=== PATIENT | male | born 1975 | race Hispanic/Latino ===

== ENCOUNTER 2022-12-09 11:18 | Observation (INO) | payer OTHER ==
--- OUTSIDE RECORDS SUMMARY | 2022-12-09 11:24 | XMS REPORT | Continuity of Care Document ---
:1975 Author Organization [facility] t Address [address] [place] [id number] Care Team Providers Name Role Phone YOU VON Etienne Primary Care Physician Unavailable AVINASH CHILD Attending Clinician Unavailable Negin Fierro RN Attending Clinician MARIAN MADERA Attending Clinician Unavailable Patricia Peters DO Attending Clinician Marian Madera MD Attending Clinician Jorge Castillo MD Attending Clinician Doctor Unassigned, [place] Attending Clinician Unavailable Kade Guerrero Attending Clinician AVINASH CHILD Admitting Clinician Unavailable MARIAN MADERA Admitting Clinician Unavailable Marian Madera MD Admitting Clinician Kade Guerrero Admitting Clinician Payers Payer Name Policy Type Policy Number Effective Date Expiration Date S ource Problems Condition Condition Condition Status Onset Resolution Last Treating Co mments Source Name Details Category Date Date Treatment Clinician Date Cholangiti Cholangiti Disease Active 2020-07 Overview : Univers s s 07-22 Formattin ity of 00:00: g of this [place] 00 note Medical might be Branch different from the original. Added automatic ally from request for surgery [id number] Gallstone Gallstone Disease Active 2020-07 Uni vers pancreatit pancreatit 07-12 it y of is is 00:00: [place] 00 Medical Branch Choledocho Choledocho Disease Active 2020-07 Overview : Univers lithiasis lithiasis 07-12 Formattin i ty of 00:00: g of this 00 note Medical might be Branch different from the original. Added automatic ally from request for surgery [id number] Hypertensi Hypertens Problem Active 2019-01-31 Memoria ve angela 07-04 04:01:41 l disorder, disorder, 00:00: Herm larry systemic systemic 00 arterial arterial (disorder) (disorder) Active 07/04/2004 Problem 01/31/2019 [facility] Anorectal Anorectal Problem Active 2019-01-31 Memoria pain pain 04:01:41 l (finding) (finding) Herm larry Active Problem 01/31/2019 [facility] Hematochez Hematoche Problem Active 2019-01-31 Memoria ia mamta 04:01:41 l (finding) (finding) Herm larry Active Problem 01/31/2019 [facility] Hyperchole Hyperchol Problem Active 2019-01-31 Memoria sterolemia esterolemi 04:01:41 l (disorder) a Silver n (disorder) Active Problem 01/31/2019 [facility] History of Past Illness Condition Condition Condition Status Onset Resolution Last Treating Co mments Source Name Details Category Date Date Treatment Clinician Date Other Other Problem 2019-01-31 2019-01-31 Memoria specified specified 01-29 04:01:41 04:01:41 l diseases diseases 05:00: Silver n of anus of anus and rectum and rectum 01/29/2019 01/31/2019 [facility] Allergies, Adverse Reactions, Alerts Allergy Allergy Status Severity Reaction(s) Onset Inactive Treating Comm ents Source Name Type Date Date Clinician No Known No Known Active Memori a Medicati Medicati l on on Tarik Allergie Allergie s s NO KNOWN Drug Active Univers ALLERGIE Class ity of S [facility] Social History Social Habit Start Date Stop Date Quantity Comments Source Exposure to Not sure University of SARS-CoV-2 (event) [facility] Gender [facility] History of tobacco Current smoker [facility] Alcohol intake 2021-09-22 2021-09-22 Current drinker [facility] 00:00:00 00:00:00 of [facility] (finding) History of Social 2021-09-22 2021-09-[address] function 00:00:00 00:00:00 Hospital Tobacco use and 2021-08-20 2021-08-20 Smokeless tobacco [facility] exposure 00:00:00 00:00:00 non-user Hospital Tobacco Comment 2021-08-20 2021-08-20 teenager [facility] 00:[facility]00 Hospital Alcohol Comment 2021-08-20 2021-08-20 occasional [facility] 00:00:00 00:00:00 [facility] Sex Assigned At [birth year] [facility] 00[facility]00 Hospital Smoking Status Start Date Stop Date Source Unknown if ever smoked [facility] Ex-smoker 2021-08-20 00:00:00 2021-08-20 00:00:00 [facility] Medications Ordered Filled Start Stop Current Ordering Indication Dosage Frequency Signature Comments Components Source Medication Medication Date Date Medication? Clinician (SIG) Name Name lactated 2020-07 Yes 1000mL at 50 Univer s ringers IV 1-13 mL/hr, ity of infusion 12:30: 1,000 [place] 1[place]000 [place] 00 IV Medical Infusion, Branch CONTINUOUS , Starting on 05/16/21 at 0630, Until Discontinu ed, Routine metoprolol 2020-07 Yes 25mg 25 mg, Unive rs tartrate 1-13 Oral, BID, ity o f (LOPRESSOR) 02:00: First dose [place] tablet 25 00 on Tue Medical mg 05/15/21 Branch at 2000, Until Discontinu ed, Routine lactated 2020-07 1000mL at 125 Univ ers ringers IV 1-12 11-13 mL/hr, ity of infusion 21:45: 12:29 1,000 mL, [place] as 1,000 mL 00 :53 IV Medical Infusion, Branch CONTINUOUS , Starting on 05/15/21 at 1545, Until 05/16/21 at 0629, Routine HYDROcodone 2020-07 Yes 1{tbl} 1 tablet, Univers -acetaminop 1-12 Oral, ity of hen (NORCO 21:36: Q6HPRN, [place] 5) 5-325 mg 06 Starting Medi joycelyn tablet 1 on Tue Branch tablet 05/15/21 at 1536, Until Discontinu ed, Routine, Pain (scale 4-6) acetaminoph 2020-07 Yes 650mg 650 mg, Un bev en -12 Oral, ity of (TYLENOL) 21:35: Q6HPRN, [place] tablet 650 33 Starting Medic al mg on Tue Branch 05/15/21 at 1535, Until Discontinu ed, Routine, Pain (scale 1-3) pantoprazol 2020-07 Yes 40mg 40 mg, Univ ers e -12 Oral, ity of (PROTONIX) 21:30: DAILY, [place] EC tablet 00 First dose Medi joycelyn 40 mg on Tue Branch 05/15/21 at 1530, Until Discontinu ed, Routine lactated 2020-07- No 1000mL at 125 Univ ers ringers IV 07-15 1112 mL/hr, ity of infusion 15:00: 21:34 1,000 mL, [place] 1,000 mL 00 :51 IV Medical Infusion, Branch CONTINUOUS , Starting on Tue05/15/21 at 0900, Until Tue05/15/21 at 1534, Routine simethicone 2020-07 Yes 80mg 80 mg, Univ ers (GAS RELIEF 07-15 Oral, ity of (SIMETHICON 14:45: PC+HS, [place] E)) 00 First dose Medical chewable (after Branch tablet 80 last mg reorder) on Tue05/15/21 at 0845, Until Discontinu ed, Routine KCL 2020-07- No 40meq 40 mEq, IV Unive rs (POTASSIUM 07-15 Piggyback, it y of CHLORIDE) 10:34: 11:46 ONCE, 1 [place] 40 mEq in 00 :00 dose, On Medica l NaCl 0.9% Tue Branch (NS) 05/15/21 piggyback at 0445, 250 mL simethicone 2020-07- No 80mg 80 mg, Uni vers (GAS RELIEF -05-15 Oral, ity of (SIMETHICON 22:00: 05:25 [place]CE, 1 [place] 00 :00 dose, On Medical chewable [place] Branch tablet 80 05/14/21 mg at 1600, Routine acetaminoph 2020-07- No 1000mg 1,000 mg, Univers en ADULT 07-14 IV ity of ([facility]) 20:00: 14:39 Infusion, [place] injection 00 :00 Administer Medi joycelyn 1,000 mg over 15 Branch Minutes, Q8H, 3 doses, First dose (after last reorder) on Ellen 05/14/21 at 1400, Last dose on Tue05/15/21 at 0600, Routine
Indicatio n: Non-periop erative Patient
Approved by: Per Policy (NPO Status) acetaminoph 2020-07- No 1000mg 1,000 mg, Univers en ADULT 07-14 IV ity of ([facility]) 20:00: 19:59 [place]fusion, [place] injection 00 :00 Administer Medi joycelyn 1,000 mg over 15 Branch Minutes, Q8H, 3 doses, First dose (after last reorder) on [place] 05/14/21 at 1400, Last dose on Tue05/15/21 at 0600, Routine
Indicatio n: Non-periop erative Patient
Approved by: Per Policy (NPO Status) lactated 2020-07 Yes 1000mL at 175 Unive rs ringers IV 1-11 mL/hr, ity of infusion 16:45: 1,000 mL, [place] 1,000 mL 00 IV Medical Infusion, Branch CONTINUOUS , Starting on Ellen 05/14/21 at 1045, Until Discontinu ed, Routine lactated 2020-07- No 1000mL at 175 Univ ers ringers IV 07-14 1112 mL/hr, ity of infusion 16:45: 14:45 1,000 mL, [place] 1,000 mL 00 :15 IV Medical Infusion, Branch CONTINUOUS , Starting on Ellen 05/14/21 at 1045, Until Tue05/15/21 at 0845, Routine acetaminoph 2020-07- No 1000mg 1,000 mg, Univers en ADULT 07-14 IV ity of ([facility]) 13:30: 13:06 [place]fusion, [place] injection 00 :00 Administer Medi joycelyn 1,000 mg over 15 Branch Minutes, ONCE, 1 dose, On Ellen 05/14/21 at 0730, Routine
Indicatio n: Non-periop erative Patient
Approved by: Per Policy (NPO Status) acetaminoph 2020-07- No 1000mg 1,000 mg, Univers en ADULT 07-14 IV ity of (OFIRMEV) 04:15: 04:42 [place]fusion, [place] injection 00 :00 Administer Medi joycelyn 1,000 mg over 15 Branch Minutes, ONCE, 1 dose, On Tue05/13/21 at 2215, Routine
Indicatio n: Non-periop erative Patient
Approved by: Per Policy (NPO Status) enoxaparin 2020-07 Yes 40mg 40 mg, Unive rs (LOVENOX) 07-13 Subcutaneo ity of injection 23:00: [place], DAILY, [place] 40 mg 00 First dose Medical on Tue Branch 05/13/21 at 1700, Until Discontinu ed, Routine enoxaparin 2020-07 Yes 40mg 40 mg, Unive rs (LOVENOX) 07-13 Subcutaneo ity of injection 23:00: us, DAILY, [place] 40 mg 00 First dose Medical on Tue Branch 05/13/21 at 1700, Until Discontinu ed, Routine Indomethaci 2020-07- No PRN, Unive rs n (INDOCIN) 07-13 Starting ity of suppository 22:03: 23:22 on Tue [place] as 00 :00 05/13/21 Medical at 1603, Branch Until Tue05/13/21 at 1722, Routine, Intra-op metoprolol 2020-07 Yes 5mg 5 mg, Univer s (LOPRESSOR) 07-13 Intravenou it y of injection 5 18:00: s, Q6H, [place] mg 00 First dose Medical on Tue Branch 05/13/21 at 1200, Until Discontinu ed, Routine metoprolol 2020-07- No 5mg 5 mg, Unive rs (LOPRESSOR) 07-13 Intravenou i ty of injection 5 18:00: 21:34 s, Q6H, [place] mg 00 :50 First dose Medical on Tue Branch 05/13/21 at 1200, Until Discontinu ed, Routine pantoprazol 2020-07- No 40mg 40 mg, Uni vers e 07-13-13 Slow IV ity of (PROTONIX) 16:30: 16:29 Push, [place] injection 00 :00 Q24H, 3 Medical 40 mg doses, Branch First dose on Tue05/13/21 at 1030, Last dose on Tue05/15/21 at 1030 pantoprazol 2020-07 No 40mg 40 mg, Uni vers e 07-13 Slow IV ity of (PROTONIX) 16:30: 16:28 Push, [place] injection 00 :00 Q24H, 3 Medical 40 mg doses, Branch First dose on Tue05/13/21 at 1030, Last dose on Tue05/15/21 at 1030 lactated 2020-07 No 1000mL at 999 Univ ers ringers IV 1-10 11-10 mL/hr, ity of infusion 15:15: 14:27 1,000 mL, [place] 1,000 mL 00 :00 IV Medical Infusion, Branch ONCE, 1 dose, On Tue05/13/21 at 0915, Routine potassium 2020-07 No 20meq 20 mEq, IV Univers chloride 20 07-13 11-10 Piggyback, i ty of mEq/100 mL 14:30: 19:20 ONCE, 1 [place] as (KCL) 20 00 :00 dose, On Medical mEq/100 mL Tue Branch RTU IVPB 20 05/13/21 mEq at 0830, 100 mL acetaminoph 2020-07 No 1000mg 1,000 mg, Univers en ADULT 07-13-10 IV ity of (OFIRMEV) 13:15: 15:55 Infusion, [place] injection 00 :00 Administer Medi joycelyn 1,000 mg over 15 Branch Minutes, ONCE, 1 dose, On Tue05/13/21 at 0715, Routine
Indicatio n: Non-periop erative Patient
Approved by: Per Policy (NPO Status) piperacilli 2020-07 Yes 3.375g 3.375 g, Univers n-tazobacta -10 IV ity of m (ZOSYN) 01:15: [place]back, [place] 3.375 g in 00 Q6H ABX, Medic al NaCl 0.9% First dose Bran ch (NS) 100 mL on Tue MINI-BAG 05/12/21 at 1915, Until Discontinu ed, Administer over 30 Minutes, 100 mL
Reas on for Anti-Infec tive: Empiric Therapy for Suspected Infection< br>Empiric Therapy Site: Abdominal< br>Duratio n of therapy: 72 hours piperacilli 2020-07- No 3.375g 3.375 g, Univers n-tazobacta 07-1313 IV ity of m (ZOSYN) 01:15: 19:38 Piggyback, [place] 3.375 g in 00 :19 Q6H ABX, Medic al NaCl 0.9% First dose Bran ch (NS) 100 mL on [facility] MINI-BAG 05/12/21 at 1915, Until Discontinu ed, Administer over 30 Minutes, 100 mL
Reas on for Anti-Infec tive: Empiric Therapy for Suspected Infection< br>Empiric Therapy Site: Abdominal< br>Duratio n of therapy: 72 hours enoxaparin 2020-07- No 40mg 40 mg, Univ ers (LOVENOX) 07-1210 Subcutaneo ity of injection 23:00: 16:25 us, DAILY, [place] 40 mg 00 :14 First dose Medical on [facility] 05/12/21 at 1700, Until Discontinu ed, Routine FENTanyl 2020-07 Yes 1000ug IV Univers [employer]ORTS PHOTOGRAPHER 1,000 09 Infusion, ity o f mcg in NaCl 21:15: CONTINUOUS [place] 0.9%(NS) 00 , Starting Medic al 100 mL RTU on [facility] 05/12/21 at 1515, Until Discontinu ed, Routine FENTanyl 2020-07- No 1000ug IV Univer s SPORTS PHOTOGRAPHER 1,000 07-12 1112 Infusion, ity of mcg in NaCl 21:15: 14:44 CONTINUOUS [place] 0.9%(NS) 00 :42 , Starting Medic al 100 mL RTU on [facility] 05/12/21 at 1515, Until Tue05/15/21 at 0844, Routine lactated 2020-07- No 1000mL at 250 Univ ers ringers IV 07-12 11-11 mL/hr, ity of infusion 21:15: 16:40 1,000 mL, [place] 1,000 mL 00 :19 IV Medical Infusion, Branch CONTINUOUS , Starting on Tue05/12/21 at 1515, Until Ellen 05/14/21 at 1040, Routine naloxone 2020-07 Yes .1mg 0.1 mg, Univer s (NARCAN) 07-12 Slow IV ity of injection 20:09: Push, [place] 0.1 mg 27 SEE-INSTRU Medical CTIONS, Branch Starting on Tue05/12/21 at 1409, Until Discontinu ed, Routine naloxone 2020-07 Yes .1mg 0.1 mg, Univer s (NARCAN) 07-12 Slow IV ity of injection 20:09: Push, [place] 0.1 mg 27 SEE-INSTRU Medical CTIONS, Branch Starting on Tue05/12/21 at 1409, Until Discontinu ed, Routine ondansetron 2020-07 Yes 4mg 4 mg, Slow Univers (ZOFRAN 07-12 IV Push, ity of (PF)) 20:09: Q6HPRN, [place] injection 4 11 Starting Medi joycelyn mg on Tue Branch 05/12/21 at 1409, Until Discontinu ed, Routine, Nausea and Vomiting (N/V) ondansetron 2020-07 Yes 4mg 4 mg, Slow Univers (ZOFRAN 07-12 IV Push, ity of (PF)) 20:09: Q6HPRN, [place] injection 4 11 Starting Medi joycelyn mg on [facility] Branch 05/12/21 at 1409, Until Discontinu ed, Routine, Nausea and Vomiting (N/V) acetaminoph 2020-07- No 1000mg 1,000 mg, Univers en ADULT 07-12 IV ity of (OFIRMEV) 20:00: 01:19 Infusion, [place] injection 00 :00 Administer Medi joycelyn 1,000 mg over 15 Branch Minutes, ONCE, 1 dose, On Tue05/12/21 at 1400, Routine
Indicatio n: Non-periop erative Patient
Approved by: Per Policy (NPO Status) FENTanyl PF 2020-07- No 100ug 100 mcg, Univers (SUBLIMAZE 07-12 Slow IV ity o f (PF)) 16:45: 16:20 Push, [place] injection 00 :00 ONCE, 1 Medical 100 mcg dose, On Branch Tue05/12/21 at 1045, Routine D5W 0.45% 2020-07 No 1000mL at 150 Uni vers NaCl 07-12 11-10 mL/hr, ity of (1/2NS) IV 16:00: 14:07 1,000 mL, [place] infusion 00 :00 IV Medical 1,000 mL Infusion, Branch CONTINUOUS , Starting on Tue05/12/21 at 1000, Until Tue05/13/21 at 0807, ANNIE FENTanyl PF 2020-07- No 50ug 50 mcg, Un bev (SUBLIMAZE 07-12 Slow IV ity o f (PF)) 16:00: 15:07 Push, [place] injection 00 :00 ONCE, 1 Medical 50 mcg dose, On Branch Tue05/12/21 at 1000, Routine ondansetron 2020-07- No 4mg 4 mg, Slow Univers (ZOFRAN 07-12 IV Push, ity of (PF)) 14:45: 14:11 ONCE, 1 [place] injection 4 00 :00 dose, On Medi joycelyn mg [facility] 05/12/21 at 0845, ANNIE morpHINE 2020-07- No 4mg 4 mg, Slow Un bev injection 4 07-12 IV Push, ity of mg 14:45: 14:11 ONCE, 1 [place] 00 :00 dose, On Medical [facility] Branch 05/12/21 at 0845, STAT NaCl 0.9% 2020-07 No 1000mL at 999 Uni vers (NS) bolus 07-12 mL/hr, ity of infusion 14:45: 16:30 1,000 mL, [place] 1,000 mL 00 :00 IV Medical Infusion, Branch ONCE, 1 dose, On Tue05/12/21 at 0845, ANNIE iopamidol 2020-07- No [id number] 120mL 120 mL, Univers (ISOVUE 07-12 Intravenou ity o f 370-500 mL) 14:00: 14:00 s, ONCE, 1 [place] injection 00 :00 dose, On Medica l 120 mL [facility] 05/12/21 at 0815, Routine No known 2020-07 No Univers medications 07-12 ity of 12:49: [address] No known 2020-07 No Univers medications - ity of 12:49: [address] No known 2020-07 No Univers medications - ity of 12:49: [address] No known 2020-07 No Univers medications 07-12 ity of 12:49: [address] No 200 mL, Memoria Medication 01-29 Soln-IV, l 20:43: IV, Once, first dose 01/29/19 15:43:00 CDT, stop date 01/29/19 15:43:00 CDT Misc No 200 mL, Memoria Medication 01-29 Soln-IV, l 20:43: IV, Once, first dose 01/29/19 15:43:00 CDT, stop date 01/29/19 15:43:00 CDT Saline Lock No 10 mL, Mike camilo Flush 01-29 Soln, IV l 17:52: Push, As Indicated PRN for flush, first dose 01/29/19 12:52:00 CDT LR 1,000 mL No 1,000 mL, M emoria - IV, 75 l 17:52: mL/hr, start date 01/29/19 12:52:00 CDT Saline Lock No 10 mL, Mike camilo Flush 01-29 Soln, IV l 17:52: Push, As Indicated PRN for flush, first dose 01/29/19 12:52:00 CDT LR 1,000 mL No 1,000 mL, M emoria - IV, 75 l 17:52: mL/hr, start date 01/29/19 12:52:00 CDT hydrocortis Yes 25 mg = 1 M emoria one acetate - supp, IA, l 25 MG 17:46: BID, X 10 Tarik Rectal 00 days, # 20 Suppository supp, 0 Refill(s) hydrocortis Yes 25 mg = 1 M emoria one acetate - supp, IA, l 25 MG 17:46: BID, X 10 [place] Rectal 00 days, # 20 Suppository supp, 0 Refill(s) propofol 2019-0 No 50 mg = 5 Mike camilo 7-29 mL, l 17:38: Emulsion, Tarik 00 IV, Once, first dose 01/29/19 12:38:00 CDT, stop date 01/29/19 12:38:00 CDT propofol 2019-0 No 50 mg = 5 Mike camilo 7-29 mL, l 17:38: Emulsion, [place] 00 IV, Once, first dose 01/29/19 12:38:00 CDT, stop date 01/29/19 12:38:00 CDT propofol 2019-0 No 100 mg = Memor ia 7-29 10 mL, l 17:34: Emulsion, Tarik 00 IV, Once, first dose 01/29/19 12:34:00 CDT, stop date 01/29/19 12:34:00 CDT propofol 2019-0 No 100 mg = Memor ia 7-29 10 mL, l 17:34: Emulsion, [place] 00 IV, Once, first dose 01/29/19 12:34:00 CDT, stop date 01/29/19 12:34:00 CDT midazolam 2019-0 No 2 mg = 2 Mike camilo 7-29 mL, l 17:25: Injection, Tarik 00 IV, Once, first dose 01/29/19 12:25:00 CDT, stop date 01/29/19 12:25:00 CDT fentaNYL 2019-0 No 100 mcg = Mike camilo 7-29 2 mL, l 17:25: Injection, [place] 00 IV, Once, first dose 01/29/19 12:25:00 CDT, stop date 01/29/19 12:25:00 CDT lidocaine 2019-0 No 100 mg = 5 Me moria 7-29 mL, l 17:25: Injection, Tarik 00 IV, Once, first dose 01/29/19 12:25:00 CDT, stop date 01/29/19 12:25:00 CDT midazolam 2019-0 No 2 mg = 2 Mike camilo 7-29 mL, l 17:25: Injection, Tarik 00 IV, Once, first dose 01/29/19 12:25:00 CDT, stop date 01/29/19 12:25:00 CDT fentaNYL 2019-0 No 100 mcg = Mike camilo - 2 mL, l 17:25: Injection, Tarik IV, Once, first dose 01/29/19 12:25:00 CDT, stop date 01/29/19 12:25:00 CDT lidocaine 2019-0 No 100 mg = 5 Me moria 7-29 mL, l 17:25: Injection, Harrison IV, Once, first dose 01/29/19 12:25:00 CDT, stop date 01/29/19 12:25:00 CDT LR 1,000 mL 2019-0 No 1,000 mL, M emoria 7- IV, 30 l 16:54: mL/hr, start date 01/29/19 11:54:00 CDT Lidocaine 2019-0 No 0.2 mL, Memor ia 2% 0.2 mL 01-29 Injection, l IV Start 16:54: Subcutaneo [facility] [[facility] 00 us, Once PRN for other (see comment), first dose 01/29/19 11:54:00 CDT LR 1,000 mL 2019-0 No 1,000 mL, M emoria - IV, 30 l 16:54: mL/hr, start date 01/29/19 11:54:00 CDT Lidocaine 2019-0 No 0.2 mL, Memor ia 2% 0.2 mL 01-29 Injection, l IV Start 16:54: Subcutaneo [facility] deal [[place]] 00 us, Once PRN for other (see comment), first dose 01/29/19 11:54:00 CDT atorvastati 2019-0 Yes 10 mg = 1 M emoria n 10 mg 7-25 tabs, l oral tablet 14:27: Oral, Sandra nn Daily, cholestero l atorvastati 2019-0 Yes 10 mg = 1 M emoria n 10 mg 7-25 tabs, l oral tablet 14:27: Oral, Sandra nn Daily, cholestero l lisinopril 2019-0 Yes 10 mg = 1 Me moria 10 mg oral 7-25 tabs, l tablet 14:26: Oral, [place] 00 Daily, HTN lisinopril 2019-0 Yes 10 mg = 1 Me moria 10 mg oral 7-25 tabs, l tablet 14:26: Oral, [place] 00 Daily, HTN Immunizations Ordered Filled Immunization Date Status Comments [facility] Immunization Name Name SARS-COV-2 COVID-19 2020-09-17 Completed Unive rsity of MICKIE/J&J VACCINE 00:00:00 [facility] Vital Signs Vital Name Observation Time Observation Value Comments Source Systolic blood 2021-05-16 22:00:00 145 mm[Hg] Univer sity of pressure [place] [facility] Diastolic blood 2021-05-16 22:00:00 95 mm[Hg] Unive rsity of pressure [place] [facility] Heart rate 2021-05-16 22:00:00 107 /min [facility]i [facility] [place] [facility] Body temperature 2021-05-16 22:00:00 37.72 Tory Univ ersity of [place] [facility] Respiratory rate 2021-05-16 22:00:00 20 /min Univ ersity of [place] [facility] Oxygen saturation in 2021-05-16 22:00:00 95 /min University of Arterial blood by [place] [employer]ulse oximetry Branch Body height 2021-05-12 18:40:00 182.9 cm [facility] [place] [facility] Body weight 2021-05-12 18:40:00 118.48 kg standing [facility] [place] [facility] BMI 2021-05-12 18:40:00 35.43 kg/m2 [facility] [place] [facility] Systolic blood 2021-05-13 21:15:00 179 mm[Hg] Univer sity of pressure [facility] Diastolic blood 2021-05-13 21:15:00 105 mm[Hg] Unive rsity of pressure [place] [facility] Heart rate 2021-05-13 21:15:00 103 /min [facility]i [facility] [place] [facility] Respiratory rate 2021-05-13 21:15:00 34 /min Univ ersity of [place] [facility] Oxygen saturation in 2021-05-13 21:15:00 93 /min University of Arterial blood by [email or web address] joycelyn Pulse oximetry Branch Body temperature 2021-05-13 20:30:00 36.78 Tory Univ ersity [facility] [place] [facility] Body height 2021-05-12 18:40:00 182.9 cm [facility]i [facility] [place] [facility] Body weight 2021-05-12 18:40:00 118.48 kg standing [facility] [place] [facility] BMI 2021-05-12 18:40:00 35.43 kg/m2 Universi [facility] Respitory Rate 2019-01-29 18:27:00 Memori al Harrison Systolic (mm Hg) 2019-01-29 18:27:00 Mike rial [place] Diastolic (mm Hg) 2019-01-29 18:27:00 Mem orial [place] Heart Rate 2019-01-29 18:00:00 [facility] [place] Respitory Rate 2019-01-29 18:00:00 Memori al Tarik Systolic (mm Hg) 2019-01-29 18:00:00 Mike rial [place] Diastolic (mm Hg) 2019-01-29 18:00:00 Mem orial Tarik Heart Rate 2019-01-29 17:50:00 [facility] [place] Respitory Rate 2019-01-29 17:50:00 Memori al [place] Systolic (mm Hg) 2019-01-29 17:50:00 Mike rial [place] Diastolic (mm Hg) 2019-01-29 17:50:00 Mem orial [place] Heart Rate 2019-01-29 17:40:00 [facility] [place] Temperature Oral (F) 2019-01-29 17:40:00 36.8 Tory [facility] Height 2019-01-29 16:52:00 182 cm [facility] Tarik Temperature Oral (F) 2019-01-29 16:52:00 37.2 Tory [facility] Height 2019-01-25 14:16:00 182 cm [facility] [place]ik Procedures Procedure Date / Time Performing Source Performed Clinician LIPASE 2021-05-16 [facility] of 14:11:00 [facility] COMP. METABOLIC PANEL ([id number]) 2021-05-16 Emma Seo Un iversity of 14:11:00 [facility] CBC WITH DIFF 2021-05-16 Emma Seo [place] of 14:11:00 [facility] PHOSPHORUS 2021-05-15 Emma Seo [place] of 09:34:00 [facility] LIPASE 2021-05-15 Carine, [facility] of 09:34:00 [facility] MAGNESIUM 2021-05-15 Emma Seo [place] of 09:34:00 [facility] COMP. METABOLIC PANEL ([id number]) 2021-05-15 Janusz Hawk Un iversity of 09:34:00 [facility] CBC WITH DIFF 2021-05-15 Janusz Hawk University of 09:34:00 Larry [facility] PHOSPHORUS 2021-05-14 Emma Seo [place] of 11:26:00 [facility] AMYLASE 2021-05-14 [facility] of 11:26:00 MolinaIshano [facility] LIPASE 2021-05-14 Emma Seo [place] of 11:26:00 [facility] MAGNESIUM 2021-05-14 Gabbi [facility] of 11:26:00 [facility] HEPATIC FUNCTION PANEL ([id number]) 2021-05-14 Emma Seo U niversity of (ALB,T.PRO,BILI 11:26:00 [place] [facility] T,BU/BC,ALT,AST,ALK PHOS) Branch BASIC METABOLIC PANEL (NA, K, 2021-05-14 Emma Seo Un iversity of CL, CO2, GLUCOSE, BUN, 11:26:00 [place] Med ical CREATININE, CA) Branch CBC WITH DIFF 2021-05-14 Emma Seo [place] of 11:26:00 [facility] PHOSPHORUS 2021-05-14 Emma Seo [place] of 11:26:00 [facility] AMYLASE 2021-05-14 [facility] of 11:26:00 Jesse Garcia [facility] LIPASE 2021-05-14 Emma Seo [place] of 11:26:00 [facility] MAGNESIUM 2021-05-[address] [facility] 11:26:00 [facility] HEPATIC FUNCTION PANEL ([id number]) 2021-05-14 Emma Seo U niversity of (ALB,T.PRO,BILI 11:26:00 [place] [facility] T,BU/BC,ALT,AST,ALK PHOS) Branch BASIC METABOLIC PANEL (NA, K, 2021-05-14 Emma Seo Un iversity of CL, CO2, GLUCOSE, BUN, 11:26:00 [place] [facility] CREATININE, [place]) Branch CBC WITH DIFF 2021-05-14 Emma Seo of 11:26:00 [facility] CYTO BILE DUCT BRUSHING 2021-05-13 Jorge Castillo [facility] of 22:55:00 [facility] ERCP (ENDO) 2021-05-13 Santy [facility] of 21:26:44 [facility] ERCP (ENDO) 2021-05-13 Marian Madera [facility] of 21:26:44 [facility] ENDOSCOPIC RETROGRADE 2021-05-13 Jorge Castillo [place] of CHOLANGIOPANCRETOGRAPHY 21:25:00 [facility] dicnc Branch ENDOSCOPIC RETROGRADE 2021-05-13 Anna, [facility] of CHOLANGIOPANCRETOGRAPHY 21:25:00 [facility] 2021-05-13 Gabbi [facility] of 11:58:00 [facility] MAGNESIUM 2021-05-13 Gabbi [facility] of 11:58:00 [facility] COMP. METABOLIC PANEL ([id number]) 2021-05-13 Emma Seo Un i[facility]ity of 11:58:00 [facility] CBC WITH DIFF 2021-05-13 Gabbi [facility] of 11:58:00 [facility] PROTHROMBIN TIME / INR 2021-05-13 Emma Seo [facility] y of 11:58:00 [facility] ACTIVATED PARTIAL THRMPLAS MAMI 2021-05-13 Emma Seo U niversity of 11:58:00 [facility] FIBRINOGEN 2021-05-13 Gabbi [facility] of 11:58:00 [facility] PHOSPHORUS 2021-05-13 Gabbi [facility] of 11:58:00 [facility] MAGNESIUM 2021-05-13 Gabbi [facility] of 11:58:00 [facility] COMP. METABOLIC PANEL (99116) 2021-05-13 Emma Seo Un iversity of 11:58:00 [facility] CBC WITH DIFF 2021-05-13 Emma Seo [place] of 11:58:00 [facility] PROTHROMBIN TIME / INR 2021-05-13 Emma Seo [facility] y of 11:58:00 [facility] ACTIVATED PARTIAL THRMPLAS MAMI 2021-05-13 Emma Seo U niversity of 11:58:00 [facility] FIBRINOGEN 2021-05-13 SeoEmma ruiz [place] of 11:58:00 [facility] ENDOSCOPY PROCEDURE 2021-05-13 Doctor Unassigned, Universit y of DOCUMENTATION 06:01:00 [place] [facility] ENDOSCOPY PROCEDURE 2021-05-13 Doctor Unassigned, Universit y of DOCUMENTATION 06:01:00 [place] [facility] US GALL BLADDER 2021-05-12 Patricia Peters [facility] 16:07:51 [facility] US GALL BLADDER 2021-05-12 Patricia Peters [facility] 16:07:51 [facility] COVID-19 (ID NOW RAPID TESTING) 2021-05-12 Patricia Peters [facility] 15:07:00 [facility] LAB ONLY COVID INTERPRETATION 2021-05-12 Patricia Peters [facility] 15:07:00 [facility] COVID-19 (ID NOW RAPID TESTING) 2021-05-12 Patricia Peters [facility] 15:07:00 [facility] LAB ONLY COVID INTERPRETATION 2021-05-12 Patricia Peters [facility] 15:07:00 [facility] CT ABDOMEN PELVIS W CONTRAST 2021-05-12 Patricia Peters [facility] 14:11:54 [facility] CT ABDOMEN PELVIS W CONTRAST 2021-05-12 Patricia Peters [facility] 14:11:54 [facility] LIPASE 2021-05-12 Patricia Peters [place] of 13:40:00 [facility] COMP. METABOLIC PANEL ([id number]) 2021-05-12 Patricia Peters [facility] 13:40:00 [facility] URINALYSIS 2021-05-12 Patricia Peters [facility] 13:40:00 [facility] LIPASE 2021-05-12 Patricia Peters [place] of 13:40:00 [facility] COMP. METABOLIC PANEL ([id number]) 2021-05-12 Patricia Peters [place] of 13:40:00 [facility] URINALYSIS 2021-05-12 Patricia Peters [place] of 13:40:00 [facility] CBC WITH DIFF 2021-05-12 Patricia Peters [place] of 13:22:00 [facility] CBC WITH DIFF 2021-05-12 Patricia Peters [place] of 13:22:00 [facility] NOTICE OF PRIVACY PRACTICES 2021-05-12 Doctor Unassigned, U niversity of 12:57:06 [place] [facility] NOTICE OF PRIVACY PRACTICES 2021-05-12 Doctor Unassigned, U niversity of 12:57:06 [place] [facility] CONSENT/REFUSAL FOR DIAGNOSIS 2021-05-12 Doctor Unassigned, University of AND TREATMENT 12:56:55 [place] [facility] CONSENT/REFUSAL FOR DIAGNOSIS 2021-05-12 Doctor Unassigned, [facility] AND TREATMENT 12:56:55 [place] [facility] AGREEMENTS AUTHORIZATIONS AND 2021-05-12 Doctor Unassigned, [facility] IRREVOCABLE ASSIGNMENTS (FORM 06:01:00 [place] [facility] 2000) Branch HOSPITAL ADMISSION 2021-05-12 Doctor Unassigned, University 06:01:00 [place] [facility] AGREEMENTS AUTHORIZATIONS AND 2021-05-12 Doctor Unassigned, [facility] IRREVOCABLE ASSIGNMENTS (FORM 06:01:00 [place] [facility] 2000) [place] EXTERNAL PROVIDER RECORDS 2020-09-17 Doctor Unassigned, Uni versity of 05:01:00 [place] [facility] COLONOSCOPY FLEXIBLE; WITH 2019-01-29 Александр Montanez BIOPSY; SINGLE OR MULTIPLE [id number] 17:33:00 (N/A)<sup>1</sup> wisdom teeth extraction 1991-07-04 Gris Montanez 00:00:00 Plan of Care Planned Activity Planned Date Details Comments Source Future Scheduled 2022-10-05 Hepatitis [facility] 04:13:56 screening (procedure) [code = 769798412] Future Scheduled 2022-10-05 Screening for [facility] Test 04:13:56 malignant neoplasm of colon (procedure) [code = 754300865] Future Scheduled 2022-10-05 COVID-19 VACCINE (2 [facility] Test 04:13:56 - Booster for Mickie series) [code = COVID-19 VACCINE (2 - Booster for Mickie series)] Future Scheduled 2022-10-05 [facility] 04:13:56 [code = INFLUENZA VACCINE] Encounters Start End Encounter Admission Attending Care Care Encounter Source Date/Time Date/Time Type Type Clinicians Facility Department ID 2021-08-21 2021-08-21 Outpatient DANYELL [facility] [id number] [place] 00:00:00 00:00:00 AVINASH [address] 2021-08-21 2021-08-21 Inpatient DANYELL [facility] [id number] [place] 00:00:00 00:00:00 AVINASH [address] 2021-05-18 2021-05-18 Transition ANDREW Fierro 1.2.840.114 [id number] Univers 00:00:00 00:00:00 of Care Negin Lowell MAE 350.1.13.10 i ty [place] [id number] [facility] 403 Branch 2021-05-12 2021-05-16 Inpatient U SANTY [facility] NIKKI [id number] Univers 07:07:00 21:23:00 MARIAN thompson of [facility] 2021-05-12 2021-05-16 Hospital Patricia Peters 1.2.84 0.114 [id number] Univers 07:07:00 21:23:00 Encounter Marian Madera 350.1.13. 10 ity of [facility] 4.2.7.2.686 [place] [id number] [facility] 097 Branch 2021-05-13 2021-05-13 Surgery Anna [facility] 1.2.231.035 [id number] Univers 15:20:00 16:35:00 Jorge HAYWOOD 350.1.13.10 it y of SCIENCES 4.2.7.2.686 [place] BLDG [id number] [facility] 020 Branch 2020-09-17 2020-09-17 Orders Doctor CHLOE 1.2.840.114 [id number] Univers 00:00:00 00:00:00 Only Unassigned, VANE 350.1.13.10 ity of [place] [facility] 4.2.7.2.686 [place] [id number] [facility] 009 Branch 2020-05-12 2020-05-12 Outpatient COH COH PDPFFBI ILC COH 00:00:00 00:00:00 [id number] 2019-01-29 2019-01-29 Outpatient [facility] [id number] Memoria 16:07:54 18:35:00 r [facility] 2019-01-29 2019-01-29 Outpatient nullFlavo [facility] 7920 8 Memoria 16:07:54 18:35:00 reinaldo [facility] 2019-01-29 2019-01-29 Outpatient nullFlavo [facility] [id number] Memoria 11:07:54 13:35:00 reinaldo Montanez 2019-01-29 2019-01-29 Outpatient [place] [id number] 11:07:54 13:35:00 , Kade 8 Results Test Description Test Time Test Comments Results Result Comments Source LIPASE 2021-05-16 15:03:12 Test Item Value Reference Range Interpretation Comme nts LIPASE (test code = 5721161833) 182 U/L 0-220 Lab Interpretation (test code = 22140-1) Normal [facility]. METABOLIC PANEL (89901)2021-05-16 15:03:11 Test Item Value Reference Range Interpretation Comments NA (test code = 139 mmol/L 135-145 1641795341) K (test code = 3.1 mmol/L 3.5-5.0 L 8787726722) CL (test code = 106 mmol/L 98-108 5628845367) CO2 TOTAL (test code = 27 mmol/L 23-31 4090879210) AGAP (test code = 2-16 2794577429) BUN (test code = 8 mg/dL 7-23 3399557321) GLUCOSE (test code = 100 mg/dL 70-110 7045728609) CREATININE (test code = 0.66 mg/dL 0.60-1.25 0333751552) TOTAL BILI (test code = 1.8 mg/dL 0.1-1.1 H 5903086186) CALCIUM (test code = 7.6 mg/dL 8.6-10.6 L 7861022760) T PROTEIN (test code = 5.4 g/dL 6.3-8.2 L 2131509242) ALBUMIN (test code = 2.6 g/dL 3.5-5.0 L 3108323033) ALK PHOS (test code = 153 U/L 34-122 H 9381447872) ALTv (test code = 82 U/L 5-50 H 1742-6) AST(SGOT) (test code = 32 U/L 13-40 2593407601) eGFR (test code = mL/min/1.73m2 5620235911) JOSIE (test code = JOSIE) Association of Glomerular Filtration Rate (GFR) and Staging of Kidney Disease* + --+ --+ ------+| GFR (mL/min/1.73 m2) ?| With Kidney Damage ?| ?Without Kidney Damage+ --------+ --------+ +| ?>90 ?| ?Stage one ?| ? Normal ?+ ---+ ---+ -------+| ?60-89 ?| ?Stage two ?| ? Decreased GFR ? + --+ --+ ------+| ?30-59 ?| ?Stage three ?| ? Stage three ? + --+ --+ ------+| ?15-29 ?| ?Stage four ? | ? Stage four ?+ ---+ ---+ -------+| ?<15 (or dialysis) ? ?| ?Stage five ? | ? Stage five ?+ ---+ ---+ -------+ *Each stage assumes the associated GFR level has been in effect for at least three months. ?Stages 1 to 5, with or without kidney disease, indicate chronic kidney disease. Notes: Determination of stages one and two (with eGFR >59mL/min/1.73 m2) requires estimation of kidney damage for at least three months as defined by structural or functional abnormalities of the kidney, manifested by either:Pathological abnormalities or Markers of kidney damage (including abnormalities in the composition of the blood or urine or abnormalities in imaging tests). Lab Interpretation Abnormal (test code = 38969-1) [facility] WITH [id number] 14:49:11 Test Item Value Reference Range Interpretation Comments WBC (test code = See_Comment H [Automated 0390-2) message] The system which generated this result transmit abel reference range : 4.20 - 10.70 10*3/?L. The reference range was not used to interpret this result as normal/abnormal . RBC (test code = See_Comment L [Automated 789-8) message] The system which generated this result transmit abel reference range : 4.26 - 5.52 10*6/?L. The reference range was not used to interpret this result as normal/abnormal . HGB (test code = 12.1 g/dL 12.2-16.4 L 718-7) HCT (test code = 36.1 % 38.4-49.3 L 4544-3) MCV (test code = 91.2 fL 81.7-95.6 787-2) MCH (test code = 30.6 pg 26.1-32.7 785-6) MCHC (test code = 33.5 g/dL 31.2-35.0 786-4) RDW-SD (test code = 49.3 fL 38.5-51.6 10810-3) RDW-CV (test code = 14.9 % 12.1-15.4 788-0) PLT (test code = See_Comment [Automated 777-3) message] The system which generated this result transmit abel reference range : 150 - 328 10*3/ ?L. The reference range was not u sed to interpret th is result as normal/abnormal . MPV (test code = 10.3 fL 9.8-13.0 82383-9) NRBC/100 WBC (test See_Comment [Automat ed code = 1138063729) message] The system which generated this result transmit aebl reference range : 0.0 - 10.0 /100 WBCs. The reference range was not used to interpret this result as normal/abnormal . NRBC x10^3 (test code <0.01 See_Comment [Auto mated = 1458068928) message] The system which generated this result transmit abel reference range : 10*3/?L. The reference range was not used to interpret this result as normal/abnormal . GRAN MAT (NEUT) % 77.9 % (test code = 770-8) IMM GRAN % (test code 1.50 % = 8483929659) LYMPH % (test code = 8.2 % 736-9) MONO % (test code = 9.4 % 5905-5) EOS % (test code = 2.7 % 713-8) BASO % (test code = 0.3 % 706-2) GRAN MAT x10^3(ANC) 15.02 10*3/uL 1.99-6.95 H (test code = 2025146356) IMM GRAN x10^3 (test 0.28 10*3/uL 0.00-0.06 H code = 1272102043) LYMPH x10^3 (test code 1.58 10*3/uL 1.09-3.23 = 731-0) MONO x10^3 (test code 1.80 10*3/uL 0.36-1.02 H = 742-7) EOS x10^3 (test code = 0.51 10*3/uL 0.06-0.53 711-2) BASO x10^3 (test code 0.05 10*3/uL 0.01-0.09 = 704-7) Lab Interpretation Abnormal (test code = 89895-8) [facility] WITH [id number] 10:14:48 Test Item Value Reference Range Interpretation Comments WBC (test code = See_Comment H [Automated 8690-2) message] The system which generated this result transmit abel reference range : 4.20 - 10.70 10*3/?L. The reference range was not used to interpret this result as normal/abnormal . RBC (test code = See_Comment L [Automated 039-8) message] The system which generated this result transmit abel reference range : 4.26 - 5.52 10*6/?L. The reference range was not used to interpret this result as normal/abnormal . HGB (test code = 11.7 g/dL 12.2-16.4 L 718-7) HCT (test code = 34.3 % 38.4-49.3 L 4544-3) MCV (test code = 90.0 fL 81.7-95.6 787-2) MCH (test code = 30.7 pg 26.1-32.7 785-6) MCHC (test code = 34.1 g/dL 31.2-35.0 786-4) RDW-SD (test code = 48.5 fL 38.5-51.6 46734-0) RDW-CV (test code = 14.7 % 12.1-15.4 788-0) PLT (test code = See_Comment [Automated 777-3) message] The system which generated this result transmit abel reference range : 150 - 328 10*3/ ?L. The reference range was not u sed to interpret th is result as normal/abnormal . MPV (test code = 11.3 fL 9.8-13.0 01576-7) NRBC/100 WBC (test See_Comment [Automat ed code = 7562676708) message] The system which generated this result transmit abel reference range : 0.0 - 10.0 /100 WBCs. The reference range was not used to interpret this result as normal/abnormal . NRBC x10^3 (test code <0.01 See_Comment [Auto mated = 2793208161) message] The system which generated this result transmit abel reference range : 10*3/?L. The reference range was not used to interpret this result as normal/abnormal . GRAN MAT (NEUT) % 81.5 % (test code = 770-8) IMM GRAN % (test code 1.10 % = 4095725318) LYMPH % (test code = 7.5 % 736-9) MONO % (test code = 9.0 % 5905-5) EOS % (test code = 0.8 % 713-8) BASO % (test code = 0.1 % 706-2) GRAN MAT x10^3(ANC) 16.88 10*3/uL 1.99-6.95 H (test code = 1796831670) IMM GRAN x10^3 (test 0.22 10*3/uL 0.00-0.06 H code = 7025096753) LYMPH x10^3 (test code 1.56 10*3/uL 1.09-3.23 = 731-0) MONO x10^3 (test code 1.86 10*3/uL 0.36-1.02 H = 742-7) EOS x10^3 (test code = 0.17 10*3/uL 0.06-0.53 711-2) BASO x10^3 (test code 0.03 10*3/uL 0.01-0.09 = 704-7) BANDS (test code = Increased A 1283699992) Lab Interpretation Abnormal (test code = 89941-9) [facility]. METABOLIC PANEL (14122)2021-05-15 10:09:26 Test Item Value Reference Range Interpretation Comments NA (test code = 137 mmol/L 135-145 9840671656) K (test code = 3.1 mmol/L 3.5-5.0 L 4050308006) CL (test code = 103 mmol/L 98-108 2716133950) CO2 TOTAL (test code = 26 mmol/L 23-31 5127701865) AGAP (test code = 2-16 2891080194) BUN (test code = 12 mg/dL 7-23 0463996013) GLUCOSE (test code = 100 mg/dL 70-110 5973595104) CREATININE (test code = 0.66 mg/dL 0.60-1.25 0807049800) TOTAL BILI (test code = 2.3 mg/dL 0.1-1.1 H 4984932333) CALCIUM (test code = 7.6 mg/dL 8.6-10.6 L 6208626376) T PROTEIN (test code = 5.1 g/dL 6.3-8.2 L 1988583658) ALBUMIN (test code = 2.4 g/dL 3.5-5.0 L 9535662618) ALK PHOS (test code = 161 U/L 34-122 H 2761163389) ALTv (test code = 111 U/L 5-50 H 1742-6) AST(SGOT) (test code = 30 U/L 13-40 2483679450) eGFR (test code = mL/min/1.73m2 0612382803) JOSIE (test code = JOSIE) Association of Glomerular Filtration Rate (GFR) and Staging of Kidney Disease* + --+ --+ ------+| GFR (mL/min/1.73 m2) ?| With Kidney Damage ?| ?Without Kidney Damage+ --------+ --------+ +| ?>90 ?| ?Stage one ?| ? Normal ?+ ---+ ---+ -------+| ?60-89 ?| ?Stage two ?| ? Decreased GFR ? + --+ --+ ------+| ?30-59 ?| ?Stage three ?| ? Stage three ? + --+ --+ ------+| ?15-29 ?| ?Stage four ? | ? Stage four ?+ ---+ ---+ -------+| ?<15 (or dialysis) ? ?| ?Stage five ? | ? Stage five ?+ ---+ ---+ -------+ *Each stage assumes the associated GFR level has been in effect for at least three months. ?Stages 1 to 5, with or without kidney disease, indicate chronic kidney disease. Notes: Determination of stages one and two (with eGFR >59mL/min/1.73 m2) requires estimation of kidney damage for at least three months as defined by structural or functional abnormalities of the kidney, manifested by either:Pathological abnormalities or Markers of kidney damage (including abnormalities in the composition of the blood or urine or abnormalities in imaging tests). Lab Interpretation Abnormal (test code = 28964-9) [facility] Test Item Value Reference Range Interpretation Comments LIPASE (test code = 5688957424) 460 U/L 0-220 H Lab Interpretation (test code = Abnormal 85742-5) [facility] 10:07[facility]09 Test Item Value Reference Range Interpretation Comments MAGNESIUM (test code = 2023500747) 2.2 mg/dL 1.7-2.4 Lab Interpretation (test code = Normal 04246-7) [facility] 10:07:09 Test Item Value Reference Range Interpretation Comments PHOSPHORUS (test code = 6888990766) 1.9 mg/dL 2.5-5.0 L Lab Interpretation (test code = Abnormal 70952-9) [facility] [id number] 22:41:26 Test Item Value Reference Range Interpretation Comments Case Report (test code Non-Gynecologic = 3488761436) Cytology ?Case: [id number] ?Authorizing Provider: ?Jorge Castillo MD ?Collected: ? 05/13/2021 283 ?Ordering Location: ? ? GI Endoscopy OR Department Received: ?05/13/2021 1743 ?Specimen: ? ?BILE DUCT, 1. 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 Final Diagnosis (test z7puqKBtYBAxz1ajAKQalO code = 0602467044) FuZzEwMzNcZnRuYmpcdWMx IHtccnRmMVxlcGljOTYwMV wldkQeOEHweQNtY7Vdpcgs AEwjAM3vJZ0clClrtCHszH UxZHNwFdRrh1hde041pSWx w6nmAELJgrkvqBo7rDggV9 3ad4X5FyhtA98udOTyYYH2 RRYoAUVbiVMsZIClCIB6ST RrlTBaM8shDNPsED2jzbrc BPqwNLybLLVepJO9WKLmpP NdK7TwDGNyIXjbJPGxhfk6 NpUoEn9eiYBnpMbkDNshSN MiARYzIzw2WUSzvYBkuQRv qAlsbG8jZxXcSIjkNDNnFm BBLiAgQklMRSBEVUNUOyBF WxDKX8XNOVfEFNTPVQDHMG 8QPfrkSRGoDHFmWAPzGJ3A P4APTCVSFEQHKzXPWGbSF8 5ZDxDzZ3ZGZJYjNNjEMHEk F29TZADULCcvaQPrVOEdFS BccGFyXGZzMjIgQWRhbSBH t505TLtahxrdAXGxIRulwo 99CLU5UNCey5HvX2CuXPKc LzExLzIwMjFccHJvdGVjdD AgXHBsYWluXGZzMjIgICAy NdZ3HRFCCQIkag73KJT1Ae Dmi3R1QUJdEzQxESWuUO1r bJisRTRqVS5qOHUsK0pekS 3jrpw6CvIcJNSnCcS1VLRd wsW2Rxu3MPWaHZyxh3vfw8 TzU5SmePUrrDu1q3udXYGr TzQ1bHKiCSqwM4pzhxPqaX OmGBZlFZs7wIwvSnRbSBXg k7gvsrOjUkYuNCYrWVGyYT WdtIffsjb3eZ48BODkfI0j tMEuKMprenIyLgR0GIltLT EwBmW8NANunQVgGRViK0uv ZWQwXGdyZWVuMFxibHVlMC M9aEftg0Z1fVLrhEWflVxn NeNzJpRbTMEPj9WoHFp8cX bbY7SuBLLeRsU7fNPhSEUz FNdjTXHbLJDfbtF0vB75UD pnwrQ8sJGiw3Ixm40kd266 zD0nyOYwKPX4DKNdRBXynE EjKELeRAG3EQDbiZCoX8bs AIBfGV3xygxpRWsaCQahTM GwfFI7FKUrpJKwT9ZeSCYm BWvzUEMzajc9BqFhEu7ztU HyvRpaXJkdg9hvj4ortQLk Yfb2WDJlIjTwQkspDCozs3 Hyc7zmGXDmhq1oJUT4yCGp yBeku2U1hGRiHHBlzKWlbr KoBSJaQcI3FIwtDR1sfm48 AILhOTI8vo4ngZMkyKngrz WuqXBaOKmsM7CcKJNbv901 MHCgR0TcSCUgh8E2kgIqKk GeOOVvxXR3dvK2BOObTUj5 uJSmrgK9qgNjhLKaR2fasC 7dVTKtIB6bzjiin2biWNwr QBmcZSJccLS2jxJ7OQYcjB CpZ2CkpQ8hUDCjTDdkTFPc qry0DkPuWj1pqBEzmXgtTP xzYmtwYWdlXHBnbmNvbnRc cGduZGVjXHBsYWluXHBsYW luXGYwXGZzMjRccWxccGxh cM1iGqVaYaFvIZvhXD2gRF CpA3jsxCLuCQMbSPJnD0ux YzMgjU8yeBdfJLahKqEgXz MyMFxwYXIgSSBoYXZlIHBl wbFqalCrwOtjxjE2hYI1AL OvWVzsQKTcMPWqsRAava6h mCjnRFCvYW2iMWLevbOtLB gmnJzyYGmhJPW4JUJgdIVq dHMgbWFkZSBieSByZXNpZG KjfMAaWBVimEado5Vce2Ka vMX1qN2qt7xzb4XdNFPtcI M9FC96hfX2lC8zWHVgTT5z RNSsRP3ciQKzsIAxGNAqd0 4gdGhpcyByZXBvcnQuXHBs YWluXGYyXGZzMjhcbGFuZz EwMzNcaGljaFxmMlxkYmNo IUGvLFdbX9axTwOiTaMiRS nfDDC9dV== Final Diagnosis Comment x7wgzKLcYNQxtPA1RqAxUY (test code = Fvu7sef7OgtSCzkAVwMIbc 7023943247) lSDvpkSzup45yQV0iK67OW 2vEVGwEnN5NQZjyrF5Ccj2 MKHsGQJkiCYdA208t8nfr1 engbZynBN8jXmxRMLhlzso TfR8TDilZBFkhidzARb6FM hnGDHkcKL1KGDwwELlI1Kb DLIxBI0nnmu5ZBS4BBujBM RxEoJ6VLTyfIOcWDCafRub VYbll709XSD7YmYpPQKujm OqlPhulH7uZdWrSSWAdTHd bmMeTB7kOSL5zX6ekDpjbj ZgwcYyhNS4F5xoSDkqnTmf djZklaUqy3swnoVkBILpBK dmiQwzc4TnE0IrVRYhjASg gd0fB8Xed7ukJCnyR2EpgZ Adk7p2fMMyx6HcAKKybXUk DFhbNQ3jNXCbkkMyT9cmo0 0waVvgCnNoYj7vwENexJfl LY04ZGVugCjoBPQjRFWbJJ VudGlmaWVkLlxwYXJ9 Clinical Information Neo Gonzales is a 45 (test code = year old male here for 4079312930) ERCP1. 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 Gross Description (test l8jqrFHsEIMjtHOXDABgHs code = 9911752312) zubzJrVXGclWAsX0Znutwc ETzkTA9rRV6uvCjynEGqtC CtTH2KNTBgAgIyCAZkwIDp mwSqRkDtOLTojYGkzDS0SK LlHL6sydggJPwiTQrbPYHe eoX0MBGfrWZuG9ZaXPWwXC 5fbfqdDKF4PNvduS8stnKT EtbgWl1wkMTjxSbzWrIbSd NoYXJzZXQwXGZuaWwgQXJp ZSm0cS4LOymdNEE9OSEJJv myMWLpUS5Iw3stSVVuzLNd NGQ4KFpgwVWjPQIjKBToNA d3YEKqGZvupKAoHN0aqHif YovlkLumq2EbrVDlIUqePS TwQPNwKUujAAJzKS9WPpSm NLaOWQZ1HSQfGjR0FZp8KA LBCpTkSpPaAPomPWD2ABRt BVw0EDw9BDlWKkRaVux2WN WbTHM0MUX7XXvjGDjdyLWh IFxcZiBBcmlhbCBcXGZzID OlGHwwBgelGLgnH39qgXsl lR9fMnFeDNbsHZHzCQnliZ pwpC7nCXNnU10dm0DLm5Uy MG5WZQt1pvLdmohueQ6oRR FxswCbSBkosMIaP3syJlDp GAzqELMiVMbMIM4tWTFKJC OqWWXOCZwcFD9UI9LNQ0BQ MvIKRkGXVIfBM3loAFRlVF pSZWNlaXZlZCBpcyAxIGN5 bI1xyqRqfSQlffECbAVaGQ c5PVaZMSO7yWXuIXSiswNU CgGhKGAwkoXdQVRlm8eyQV EiFOokVLGxvDFoj1ugx8vx w1FsiQ2fOGSebKOvs8Cbwb dlLMSCNQPfncogs0pel0Dt d9XljF9pTDEozXYjw0Uxlc xzIV1oOORoSCLcYD9jX82x GQ81ATWxtX2epuTnRGXdLF CkovX0xO8wJFgfZTZoRCgp tEkymX9fYNZwL83nn6FFc3 UmWFQgSOyvk7fteKqae0Gy dGVuZFxwYXJccGFyZFxzbC 9vFdBpq2akhZf2AEizclY9 OTJsgq1WGttvfV5eQaLyf5 esiJy4WSZHRqxbxiV0w7ny kNrmj8DwgWLhUF3VEk0= Disclaimer (test code = [id number] [id number]) FuZzEwMzNcZnRuYmpcdWMx PYhomdNyVHsmy0NhJ2FoHr AwMFxhbnNpXGRlZmxhbmcx NZDtDGS1ooCzAQZeGLnvQW YjBHfiJx8rnQYrzQfvXqBy UNJsx8xtcdEBFYxyKrCjF6 96KULePNilo1gee7QlKSBu tSEzi8V2OCFSkbeobVq0nY fgJ76iw0H6WupfK3njXOWd BDExI8MnMW2mXUXzJno4CD A9JVU1ZOZrDMVpV0OzIB1r KHKgjCJdGQd7z6qncEgpYB XrMJM3a3gpUEhgnoFvLQ3s kp9vfUy9q8wskzWbPMLkOU ZztHYLMBCwP9DknZarNy8y wZv8qDjeErzpDPA9Bnm9QE 4oal28tuv0oGzgQIPkyhxb QzY0ULamQBRyfjcgDSk8YI fwWEMgiBU4NYUvbTLrH5Gc QEAqNY4rpbe4AUA3WHpzDH BrVjX0NCRdaOZhFWKibHjr QYmgk071NWY9McJsLU0jO5 Dil5T6qZ9fdKEmVWJpkFBt WuGjGUGdrq7brIHgDLbgk9 NzHJU0eqU5wAPglWAyJMPm DH52Ahsma8IzOttdb9CsO6 2omHJ8IMuyc0esJX6oFgM0 czLyLUmyd3czfQ5nTyM4YM lnNS8gUT7jUGIxsO8kqbpu XHBnYnJkcmhlYWRccGdicm IuGk6pyPfrHEE5WUzsJ6zv aL6lSaL5JGwlP6ygiQ9bJO w1FLmpdRR2XCMpxN3tQQ3q zhrhw1olDQgeMUxeEFJjhd V3jjW4KMTjxAVxR3YvpY7k WIWwAX5kwtogs0adMKB9WC kfWGVeFMB0JrGfQGOlr2At ftv6AiYcy1SukIByYTruF9 6xs904EZOudtEnS3tdsQZx hicfbRLlzmwxDXabimW4DR HknaQgg0BnJIYfWML5DEno HBlrfAZdAYGnoCowu3xcR9 RscGFyXHBsYWluXGYxXGZz MjBcbGFuZzEwMzNcaGljaF mvKYihCqLdFAWuEKbfB8iq XkDhY0MjIDByItUjrWVqH0 ggVGhpcyByZXBvcnQgbWF5 XHcnD6z3YHXjuzXjsNv9hu BfBvHuOANvWRU6EZlihIGv RLPms8RhjihpsACmQf2jyT AzDPRzgI3nIUUwKMGlREag OQ5sqHz7MZTNgFMwfQGqSr FQOKEuSP94mjStXLFVxeof k1Z7VCwvORNuh0OjvFCeK0 cls0QtYXYlu06tDB5kz8T7 d2jaBLZ0QZ3aq4TsOMMjpJ PqqNTrQNPog3Hcbsolh2Rm KUQkpdKaw5LnSCVpwoVgkO OzZYYiozCwlv8rczCoOQBy TKZzT2FfqqtwdLhfcoKbGB Vzol9nndRbNHZ6JXHBRKOh NYPfx8PbfS6ghJJPFSK3hZ Auem5snqFSvIKzYCDyqb74 RIAqQP0iQ5xwZYKdTEDhdt ZpfZVaj2VlSYCoyLF1lLRd RM4VFfSRd19pYXNuFTRNkt ChKQLitNubwNJ0edG0nU6r IChGREEpLlx+IFRoZSBGRE VlTF2gcsBbl3FjsxZipNcr KZKmtDTsd2HnmVOdq5TazU zei7PwaABhtQAhKX9fPRYu clxwYXIgVVRNQiBMYWJvcm H7h5BqGEZvHNRwLNZ7fGat yez4KYZoqJ3hXLNzQ5tdny rbDExbTTZiq7MpmZ1vfHHC zCIou6XlpLHxbOVXkFMaQU 8imjYvBEhYXJyGSOZ9cgTk ZZSlu7LyWOvtG3wmR85hsN karQz4tQI1GWS4mQ8rDxc+ IFxwYXJccGFyIEFwcHJvcH CiESZtiXkaxfJgD0HozeMx cT3iwGAgcaOwEP3rGF5wA6 G0gHDmUVWppyMfl2ouDLzl dmUgYmVlbiByZXZpZXdlZC Xpj7SfHLmlBVI2FFcyclUk bmNsdWRpbmcgSCZFLCBTcG KtoSDtNLU0FCukenMvdhLe RN4zjH9cdQmufQ5zfSEfmT C6gwseAHQgUFYueWfwBWXf UX1maNTkFMHnsiMRmUbviB OlfE9bX7AgTDWnRKKhzn0j IQDxgQ9rVDzmz0IbddggXD YnGHJcERCztqVrvn5uBICn cXJSGK6YVNzpgTDaw5Uhqy KlN6eQLJW6PNSdXfQaYfil GJDosTCdpXXcWGOdti62QZ HfkU6chAqvAQAloQ5aaN9d tDehsY7dJlNgBxPbQSdyOM 8uVOYtK8bmuJWgITUuMGKs V9ddVrEjpT3srWtxBDdiMs FsLaChPFghUOV9jZ== Embedded Images (test code = 8468339265) [id number] (ALB,T.PRO,BILI T,BU/BC,ALT,AST,ALK PHOS)2021-05-14 12:31:33 Test Item Value Reference Range Interpretation Comments TOTAL BILI (test code = 2.8 mg/dL 0.1-1.1 H 6069785912) BILI UNCON (test code = 0.7 mg/dL 0.1-1.2 0666923913) BILI CONJ (test code = 0.1 mg/dL 0.0-0.3 3232771184) T PROTEIN (test code = 6.9 g/dL 6.3-8.2 9223162386) ALBUMIN (test code = 3.4 g/dL 3.5-5.0 L 0431980895) ALK PHOS (test code = 256 U/L 34-122 H Slight hemolysis 4186790499) ALTv (test code = 1742-6) 186 U/L 5-50 H AST(SGOT) (test code = 64 U/L 13-40 H Sligh t hemolysis 4104973104) Lab Interpretation (test Abnormal code = 02581-7) [facility]99429[facility] (ALB,T.PRO,BILI T,BU/BC,ALT,AST,ALK PHOS)2021-05-14 12:31:33 Test Item Value Reference Range Interpretation Comments TOTAL BILI (test code = 2.8 mg/dL 0.1-1.1 H 7073657090) BILI UNCON (test code = 0.7 mg/dL 0.1-1.0 1377936027) BILI CONJ (test code = 0.1 mg/dL 0.0-0.3 2761974218) T PROTEIN (test code = 6.9 g/dL 6.3-8.2 3312302438) ALBUMIN (test code = 3.4 g/dL 3.5-5.0 L 3668407977) ALK PHOS (test code = 256 U/L 34-122 H Slight hemolysis 9025288297) ALTv (test code = 1742-6) 186 U/L 5-50 H AST(SGOT) (test code = 64 U/L 13-40 H Sligh t hemolysis 6471864228) Lab Interpretation (test Abnormal code = 86634-0) [facility] WITH [id number] 12:28:56 Test Item Value Reference Range Interpretation Comments WBC (test code = See_Comment H [Automated 6690-2) message] The system which generated this result transmit abel reference range : 4.20 - 10.70 10*3/?L. The reference range was not used to interpret this result as normal/abnormal . RBC (test code = See_Comment [Automated 529-8) message] The system which generated this result transmit abel reference range : 4.26 - 5.52 10*6/?L. The reference range was not used to interpret this result as normal/abnormal . HGB (test code = 13.6 g/dL 12.2-16.4 718-7) HCT (test code = 40.7 % 38.4-49.3 4544-3) MCV (test code = 91.7 fL 81.7-95.6 787-2) MCH (test code = 30.6 pg 26.1-32.7 785-6) MCHC (test code = 33.4 g/dL 31.2-35.0 786-4) RDW-SD (test code = 49.3 fL 38.5-51.6 27317-0) RDW-CV (test code = 14.6 % 12.1-15.4 788-0) PLT (test code = See_Comment [Automated 777-3) message] The system which generated this result transmit abel reference range : 150 - 328 10*3/ ?L. The reference range was not u sed to interpret th is result as normal/abnormal . MPV (test code = 11.5 fL 9.8-13.0 43777-8) NRBC/100 WBC (test See_Comment [Automat ed code = 2398642770) message] The system which generated this result transmit abel reference range : 0.0 - 10.0 /100 WBCs. The reference range was not used to interpret this result as normal/abnormal . NRBC x10^3 (test code <0.01 See_Comment [Auto mated = 6699169950) message] The system which generated this result transmit abel reference range : 10*3/?L. The reference range was not used to interpret this result as normal/abnormal . GRAN MAT (NEUT) % 85.7 % (test code = 770-8) IMM GRAN % (test code 0.90 % = 6038467404) LYMPH % (test code = 5.7 % 736-9) MONO % (test code = 7.6 % 5905-5) EOS % (test code = 0.0 % 713-8) BASO % (test code = 0.1 % 706-2) GRAN MAT x10^3(ANC) 21.70 10*3/uL 1.99-6.95 H (test code = 8534705509) IMM GRAN x10^3 (test 0.24 10*3/uL 0.00-0.06 H code = 9151221621) LYMPH x10^3 (test code 1.45 10*3/uL 1.09-3.23 = 731-0) MONO x10^3 (test code 1.93 10*3/uL 0.36-1.02 H = 742-7) EOS x10^3 (test code = <0.03 0.06-0.53 L 711-2) BASO x10^3 (test code 0.03 10*3/uL 0.01-0.09 = 704-7) Lab Interpretation Abnormal (test code = 40848-6) [facility] WITH [id number] 12:28:56 Test Item Value Reference Range Interpretation Comments WBC (test code = See_Comment H [Automated 6690-2) message] The system which generated this result transmit abel reference range : 4.20 - 10.70 10*3/?L. The reference range was not used to interpret this result as normal/abnormal . RBC (test code = See_Comment [Automated 789-8) message] The system which generated this result transmit abel reference range : 4.26 - 5.52 10*6/?L. The reference range was not used to interpret this result as normal/abnormal . HGB (test code = 13.6 g/dL 12.2-16.4 718-7) HCT (test code = 40.7 % 38.4-49.3 4544-3) MCV (test code = 91.7 fL 81.7-95.6 787-2) MCH (test code = 30.6 pg 26.1-32.7 785-6) MCHC (test code = 33.4 g/dL 31.2-35.0 786-4) RDW-SD (test code = 49.3 fL 38.5-51.6 19011-5) RDW-CV (test code = 14.6 % 12.1-15.4 788-0) PLT (test code = See_Comment [Automated 777-3) message] The system which generated this result transmit abel reference range : 150 - 328 10*3/ ?L. The reference range was not u sed to interpret th is result as normal/abnormal . MPV (test code = 11.5 fL 9.8-13.0 40246-5) NRBC/100 WBC (test See_Comment [Automat ed code = 0871588430) message] The system which generated this result transmit abel reference range : 0.0 - 10.0 /100 WBCs. The reference range was not used to interpret this result as normal/abnormal . NRBC x10^3 (test code <0.01 See_Comment [Auto mated = 9966725649) message] The system which generated this result transmit abel reference range : 10*3/?L. The reference range was not used to interpret this result as normal/abnormal . GRAN MAT (NEUT) % 85.7 % (test code = 770-8) IMM GRAN % (test code 0.90 % = 5623682790) LYMPH % (test code = 5.7 % 736-9) MONO % (test code = 7.6 % 5905-5) EOS % (test code = 0.0 % 713-8) BASO % (test code = 0.1 % 706-2) GRAN MAT x10^3(ANC) 21.70 10*3/uL 1.99-6.95 H (test code = 0182799601) IMM GRAN x10^3 (test 0.24 10*3/uL 0.00-0.06 H code = 5031550601) LYMPH x10^3 (test code 1.45 10*3/uL 1.09-3.23 = 731-0) MONO x10^3 (test code 1.93 10*3/uL 0.36-1.02 H = 742-7) EOS x10^3 (test code = <0.03 0.06-0.53 L 711-2) BASO x10^3 (test code 0.03 10*3/uL 0.01-0.09 = 704-7) Lab Interpretation Abnormal (test code = 86955-2) [facility] 12:23:12 Test Item Value Reference Range Interpretation Comments JULEE (test code = 9274716477) 290 U/L 35-110 H Lab Interpretation (test code = Abnormal 95294-9) [facility] 12:23:12 Test Item Value Reference Range Interpretation Comments JULEE (test code = 1356186689) 290 U/L 35-110 H Lab Interpretation (test code = Abnormal 40103-5) [facility] (NA, K, CL, CO2, GLUCOSE, BUN, CREATININE, CA)2021-05-14 12:16:54 Test Item Value Reference Range Interpretation Comments NA (test code = 140 mmol/L 135-145 8975760805) K (test code = 3.9 mmol/L 3.5-5.0 Slight 4803420548) hemolysis CL (test code = 103 mmol/L 98-108 0230016819) CO2 TOTAL (test code 29 mmol/L 23-31 = 6165826051) AGAP (test code = 2-16 9826823617) BUN (test code = 14 mg/dL 7-23 Slight 3277302265) hemolysis GLUCOSE (test code = 117 mg/dL 70-110 H 1091882479) CREATININE (test code 0.72 mg/dL 0.60-1.25 = 5309343162) CALCIUM (test code = 8.1 mg/dL 8.6-10.6 L 9210275894) eGFR (test code = mL/min/1.73m2 6840070590) JOSIE (test code = JOSIE) Association of Glomerular Filtration Rate (GFR) and Staging of Kidney Disease* + -----+ --------+ +| GFR (mL/min/1.73 m2) ?| With Kidney Damage ?| ?Without Kidney Damage+ +------- +---- --+| ?>90 ?| ?Stage one ?| ? Normal ?+ ------+ ---------+--------- +| ?60-89 ?| ?Stage two ?| ? Decreased GFR ? + -----+ --------+ +| ?30-59 ?| ?Stage three ?| ? Stage three ? + -----+ --------+ +| ?15-29 ?| ?Stage four ? | ? Stage four ?+ ------+ ---------+--------- +| ?<15 (or dialysis) ? ?| ?Stage five ? | ? Stage five ?+ ------+ ---------+--------- + *Each stage assumes the associated GFR level has been in effect for at least three months. ?Stages 1 to 5, with or without kidney disease, indicate chronic kidney disease. Notes: Determination of stages one and two (with eGFR >59mL/min/1.73 m2) requires estimation of kidney damage for at least three months as defined by structural or functional abnormalities of the kidney, manifested by either:Pathological abnormalities or Markers of kidney damage (including abnormalities in the composition of the blood or urine or abnormalities in imaging tests). Lab Interpretation Abnormal (test code = 45781-5) [facility] 12:16:54 Test Item Value Reference Range Interpretation Comments MAGNESIUM (test code = 7638613051) 2.1 mg/dL 1.7-2.4 Lab Interpretation (test code = Normal 56050-4) [facility] 12:16:54 Test Item Value Reference Range Interpretation Comments PHOSPHORUS (test code = 4401417632) 2.7 mg/dL 2.5-5.0 Lab Interpretation (test code = Normal 83639-6) [facility] 12:16:54 Test Item Value Reference Range Interpretation Comments LIPASE (test code = 5670259950) 929 U/L 0-220 H Lab Interpretation (test code = Abnormal 19759-1) [facility] (NA, K, CL, CO2, GLUCOSE, BUN, CREATININE, CA)2021-05-14 12:16:54 Test Item Value Reference Range Interpretation Comments NA (test code = 140 mmol/L 135-145 0179665610) K (test code = 3.9 mmol/L 3.5-5.0 Slight 5003149255) hemolysis CL (test code = 103 mmol/L 98-108 7533923111) CO2 TOTAL (test code 29 mmol/L 23-31 = 1089485904) AGAP (test code = 2-16 2146853070) BUN (test code = 14 mg/dL 7-23 Slight 8637880675) hemolysis GLUCOSE (test code = 117 mg/dL 70-110 H 5016138242) CREATININE (test code 0.72 mg/dL 0.60-1.25 = 2308889199) CALCIUM (test code = 8.1 mg/dL 8.6-10.6 L 3257453808) eGFR (test code = mL/min/1.73m2 5988674932) JOSIE (test code = JOSIE) Association of Glomerular Filtration Rate (GFR) and Staging of Kidney Disease* + -----+ --------+ +| GFR (mL/min/1.73 m2) ?| With Kidney Damage ?| ?Without Kidney Damage+ +------- +---- --+| ?>90 ?| ?Stage one ?| ? Normal ?+ ------+ ---------+--------- +| ?60-89 ?| ?Stage two ?| ? Decreased GFR ? + -----+ --------+ +| ?30-59 ?| ?Stage three ?| ? Stage three ? + -----+ --------+ +| ?15-29 ?| ?Stage four ? | ? Stage four ?+ ------+ ---------+--------- +| ?<15 (or dialysis) ? ?| ?Stage five ? | ? Stage five ?+ ------+ ---------+--------- + *Each stage assumes the associated GFR level has been in effect for at least three months. ?Stages 1 to 5, with or without kidney disease, indicate chronic kidney disease. Notes: Determination of stages one and two (with eGFR >59mL/min/1.73 m2) requires estimation of kidney damage for at least three months as defined by structural or functional abnormalities of the kidney, manifested by either:Pathological abnormalities or Markers of kidney damage (including abnormalities in the composition of the blood or urine or abnormalities in imaging tests). Lab Interpretation Abnormal (test code = 76908-4) [facility] 12:16:54 Test Item Value Reference Range Interpretation Comments MAGNESIUM (test code = 1854446869) 2.1 mg/dL 1.7-2.4 Lab Interpretation (test code = Normal 95617-6) [facility] 12:16:54 Test Item Value Reference Range Interpretation Comments PHOSPHORUS (test code = 2632236125) 2.7 mg/dL 2.5-5.0 Lab Interpretation (test code = Normal 22169-7) [facility] 12:16:54 Test Item Value Reference Range Interpretation Comments LIPASE (test code = 9010976391) 929 U/L 0-220 H Lab Interpretation (test code = Abnormal 59719-6) [facility] WITH [id number] 12:54:27 Test Item Value Reference Range Interpretation Comments WBC (test code = See_Comment H [Automated 4590-2) message] The system which generated this result transmit abel reference range : 4.20 - 10.70 10*3/?L. The reference range was not used to interpret this result as normal/abnormal . RBC (test code = See_Comment [Automated 659-8) message] The system which generated this result transmit abel reference range : 4.26 - 5.52 10*6/?L. The reference range was not used to interpret this result as normal/abnormal . HGB (test code = 14.4 g/dL 12.2-16.4 718-7) HCT (test code = 42.5 % 38.4-49.3 4544-3) MCV (test code = 89.9 fL 81.7-95.6 787-2) MCH (test code = 30.4 pg 26.1-32.7 785-6) MCHC (test code = 33.9 g/dL 31.2-35.0 786-4) RDW-SD (test code = 47.4 fL 38.5-51.6 49741-7) RDW-CV (test code = 14.4 % 12.1-15.4 788-0) PLT (test code = See_Comment [Automated 777-3) message] The system which generated this result transmit abel reference range : 150 - 328 10*3/ ?L. The reference range was not u sed to interpret th is result as normal/abnormal . MPV (test code = 10.7 fL 9.8-13.0 93027-0) NRBC/100 WBC (test See_Comment [Automat ed code = 5947083596) message] The system which generated this result transmit abel reference range : 0.0 - 10.0 /100 WBCs. The reference range was not used to interpret this result as normal/abnormal . NRBC x10^3 (test code <0.01 See_Comment [Auto mated = 8117237753) message] The system which generated this result transmit abel reference range : 10*3/?L. The reference range was not used to interpret this result as normal/abnormal . GRAN MAT (NEUT) % 86.0 % (test code = 770-8) IMM GRAN % (test code 1.00 % = 6184364894) LYMPH % (test code = 4.5 % 736-9) MONO % (test code = 8.4 % 5905-5) EOS % (test code = 0.0 % 713-8) BASO % (test code = 0.1 % 706-2) GRAN MAT x10^3(ANC) 19.79 10*3/uL 1.99-6.95 H (test code = 4551076078) IMM GRAN x10^3 (test 0.22 10*3/uL 0.00-0.06 H code = 9362574587) LYMPH x10^3 (test code 1.04 10*3/uL 1.09-3.23 L = 731-0) MONO x10^3 (test code 1.94 10*3/uL 0.36-1.02 H = 742-7) EOS x10^3 (test code = <0.03 0.06-0.53 L 711-2) BASO x10^3 (test code 0.03 10*3/uL 0.01-0.09 = 704-7) Lab Interpretation Abnormal (test code = 90324-4) [facility] WITH [id number] 12:54:27 Test Item Value Reference Range Interpretation Comments WBC (test code = See_Comment H [Automated 0600-2) message] The system which generated this result transmit abel reference range : 4.20 - 10.70 10*3/?L. The reference range was not used to interpret this result as normal/abnormal . RBC (test code = See_Comment [Automated 359-8) message] The system which generated this result transmit abel reference range : 4.26 - 5.52 10*6/?L. The reference range was not used to interpret this result as normal/abnormal . HGB (test code = 14.4 g/dL 12.2-16.4 718-7) HCT (test code = 42.5 % 38.4-49.3 4544-3) MCV (test code = 89.9 fL 81.7-95.6 787-2) MCH (test code = 30.4 pg 26.1-32.7 785-6) MCHC (test code = 33.9 g/dL 31.2-35.0 786-4) RDW-SD (test code = 47.4 fL 38.5-51.6 90948-8) RDW-CV (test code = 14.4 % 12.1-15.4 788-0) PLT (test code = See_Comment [Automated 937-3) message] The system which generated this result transmit abel reference range : 150 - 328 10*3/ ?L. The reference range was not u sed to interpret th is result as normal/abnormal . MPV (test code = 10.7 fL 9.8-13.0 24418-2) NRBC/100 WBC (test See_Comment [Automat ed code = 2556589194) message] The system which generated this result transmit abel reference range : 0.0 - 10.0 /100 WBCs. The reference range was not used to interpret this result as normal/abnormal . NRBC x10^3 (test code <0.01 See_Comment [Auto mated = 5968418963) message] The system which generated this result transmit able reference range : 10*3/?L. The reference range was not used to interpret this result as normal/abnormal . GRAN MAT (NEUT) % 86.0 % (test code = 770-8) IMM GRAN % (test code 1.00 % = 9200981997) LYMPH % (test code = 4.5 % 736-9) MONO % (test code = 8.4 % 5905-5) EOS % (test code = 0.0 % 713-8) BASO % (test code = 0.1 % 706-2) GRAN MAT x10^3(ANC) 19.79 10*3/uL 1.99-6.95 H (test code = 8193552433) IMM GRAN x10^3 (test 0.22 10*3/uL 0.00-0.06 H code = 2110323302) LYMPH x10^3 (test code 1.04 10*3/uL 1.09-3.23 L = 731-0) MONO x10^3 (test code 1.94 10*3/uL 0.36-1.02 H = 742-7) EOS x10^3 (test code = <0.03 0.06-0.53 L 711-2) BASO x10^3 (test code 0.03 10*3/uL 0.01-0.09 = 704-7) Lab Interpretation Abnormal (test code = 21031-0) [facility] 12:34:24 Test Item Value Reference Range Interpretation Comments MAGNESIUM (test code = 7970900486) 1.8 mg/dL 1.7-2.4 Lab Interpretation (test code = Normal 70564-3) [facility] 12:34:24 Test Item Value Reference Range Interpretation Comments PHOSPHORUS (test code = 1579381367) 3.1 mg/dL 2.5-5.0 Lab Interpretation (test code = Normal 87336-7) [facility]OL[facility] ([id number])2021-05-13 12:34:24 Test Item Value Reference Range Interpretation Comments NA (test code = 136 mmol/L 135-145 3195566903) K (test code = 3.3 mmol/L 3.5-5.0 L Slight 7782097120) hemolysis CL (test code = 105 mmol/L 98-108 9774238408) CO2 TOTAL (test code 25 mmol/L 23-31 = 0710121921) AGAP (test code = 2-16 6717426728) BUN (test code = 11 mg/dL 7-23 Slight 0699405684) hemolysis GLUCOSE (test code = 109 mg/dL 70-110 8392019942) CREATININE (test code 0.67 mg/dL 0.60-1.25 = 4804336002) TOTAL BILI (test code 5.7 mg/dL 0.1-1.1 H = 2334895426) CALCIUM (test code = 8.0 mg/dL 8.6-10.6 L 3219054549) T PROTEIN (test code 6.5 g/dL 6.3-8.2 = 7538682672) ALBUMIN (test code = 3.2 g/dL 3.5-5.0 L 7699275340) ALK PHOS (test code = 264 U/L 34-122 H Slight 6722644205) hemolysis ALTv (test code = 303 U/L 5-50 H 1742-6) AST(SGOT) (test code 108 U/L 13-40 H Slight = 7894870942) hemolysis eGFR (test code = mL/min/1.73m2 6879005082) JOSIE (test code = JOSIE) Association of Glomerular Filtration Rate (GFR) and Staging of Kidney Disease* + -----+ --------+ +| GFR (mL/min/1.73 m2) ?| With Kidney Damage ?| ?Without Kidney Damage+ +------- +---- --+| ?>90 ?| ?Stage one ?| ? Normal ?+ ------+ ---------+--------- +| ?60-89 ?| ?Stage two ?| ? Decreased GFR ? + -----+ --------+ +| ?30-59 ?| ?Stage three ?| ? Stage three ? + -----+ --------+ +| ?15-29 ?| ?Stage four ? | ? Stage four ?+ ------+ ---------+--------- +| ?<15 (or dialysis) ? ?| ?Stage five ? | ? Stage five ?+ ------+ ---------+--------- + *Each stage assumes the associated GFR level has been in effect for at least three months. ?Stages 1 to 5, with or without kidney disease, indicate chronic kidney disease. Notes: Determination of stages one and two (with eGFR >59mL/min/1.73 m2) requires estimation of kidney damage for at least three months as defined by structural or functional abnormalities of the kidney, manifested by either:Pathological abnormalities or Markers of kidney damage (including abnormalities in the composition of the blood or urine or abnormalities in imaging tests). Lab Interpretation Abnormal (test code = 48288-9) [facility] 12:34:24 Test Item Value Reference Range Interpretation Comments MAGNESIUM (test code = 8628721641) 1.8 mg/dL 1.7-2.4 Lab Interpretation (test code = Normal 79629-2) [facility] 12:34:24 Test Item Value Reference Range Interpretation Comments PHOSPHORUS (test code = 8164600303) 3.1 mg/dL 2.5-5.0 Lab Interpretation (test code = Normal 82201-3) [facility] ([id number])2021-05-13 12:34:24 Test Item Value Reference Range Interpretation Comments NA (test code = 136 mmol/L 135-145 4946812066) K (test code = 3.3 mmol/L 3.5-5.0 L Slight 0773109506) hemolysis CL (test code = 105 mmol/L 98-108 7655573345) CO2 TOTAL (test code 25 mmol/L 23-31 = 2842443821) AGAP (test code = 2-16 6342371238) BUN (test code = 11 mg/dL 7-23 Slight 6707890608) hemolysis GLUCOSE (test code = 109 mg/dL 70-110 2121864426) CREATININE (test code 0.67 mg/dL 0.60-1.25 = 7503585825) TOTAL BILI (test code 5.7 mg/dL 0.1-1.1 H = 7754530250) CALCIUM (test code = 8.0 mg/dL 8.6-10.6 L 8135414223) T PROTEIN (test code 6.5 g/dL 6.3-8.2 = 2142636384) ALBUMIN (test code = 3.2 g/dL 3.5-5.0 L 4445104568) ALK PHOS (test code = 264 U/L 34-122 H Slight 6295396901) hemolysis ALTv (test code = 303 U/L 5-50 H 1742-6) AST(SGOT) (test code 108 U/L 13-40 H Slight = 0795393763) hemolysis eGFR (test code = mL/min/1.73m2 1274991532) JOSIE (test code = JOSIE) Association of Glomerular Filtration Rate (GFR) and Staging of Kidney Disease* + -----+ --------+ +| GFR (mL/min/1.73 m2) ?| With Kidney Damage ?| ?Without Kidney Damage+ +------- +---- --+| ?>90 ?| ?Stage one ?| ? Normal ?+ ------+ ---------+--------- +| ?60-89 ?| ?Stage two ?| ? Decreased GFR ? + -----+ --------+ +| ?30-59 ?| ?Stage three ?| ? Stage three ? + -----+ --------+ +| ?15-29 ?| ?Stage four ? | ? Stage four ?+ ------+ ---------+--------- +| ?<15 (or dialysis) ? ?| ?Stage five ? | ? Stage five ?+ ------+ ---------+--------- + *Each stage assumes the associated GFR level has been in effect for at least three months. ?Stages 1 to 5, with or without kidney disease, indicate chronic kidney disease. Notes: Determination of stages one and two (with eGFR >59mL/min/1.73 m2) requires estimation of kidney damage for at least three months as defined by structural or functional abnormalities of the kidney, manifested by either:Pathological abnormalities or Markers of kidney damage (including abnormalities in the composition of the blood or urine or abnormalities in imaging tests). Lab Interpretation Abnormal (test code = 36897-2) [facility] CenterPROTHROM[facility] / [id number] 12:20:05 Test Item Value Reference Range Interpretation Comments PROTIME PATIENT (test See_Comment H [Auto mated message] code = 5964-2) The system [employer] generated this result transmitted ref erence range: 10.1 - 1 2.6 Seconds. The reference range was not used to int erpret this result as normal/abnormal . INR (test code = 6301-6) Nor mal INR <1.1; Warfarin Therap eutic range 2.0 to 3. 0 or 2.5 to 3.5, dep ending upon the indica tions. Lab Interpretation (test Abnormal code = 82335-5) [facility]ACT[facility] THRMPLAS [id number] 12:20:05 Test Item Value Reference Range Interpretation Comments APTT Patient (test code = See_Comment [ Automated message] 3173-2) The system [employer] generated this result transmitted ref erence range: 26 - 36 Seconds. The re ference range was not u sed to interpret this result as normal/abnor mal. Lab Interpretation (test Normal code = 67136-5) [facility]2021-[facility] 12:20:05 Test Item Value Reference Range Interpretation Comments Fibrinogen (test code = 9488114513) 609 mg/dL 167-453 H Lab Interpretation (test code = Abnormal 06028-5) [facility] / [id number] 12:20:05 Test Item Value Reference Range Interpretation Comments PROTIME PATIENT (test See_Comment H [Auto mated message] code = 5964-2) The system [employer] generated this result transmitted ref erence range: 10.1 - 1 2.6 Seconds. The reference range was not used to int erpret this result as normal/abnormal . INR (test code = 6301-6) Nor mal INR <1.1; Warfarin Therap eutic range 2.0 to 3. 0 or 2.5 to 3.5, dep ending upon the indica tions. Lab Interpretation (test Abnormal code = 97696-6) [facility] [id number] 12:20:05 Test Item Value Reference Range Interpretation Comments APTT Patient (test code = See_Comment [ Automated message] 3173-2) The system [employer] generated this result transmitted ref erence range: 26 - 36 Seconds. The re ference range was not u sed to interpret this result as normal/abnor mal. Lab Interpretation (test Normal code = 44039-7) [facility] 12:20:05 Test Item Value Reference Range Interpretation Comments Fibrinogen (test code = 3875674385) 609 mg/dL 167-453 H Lab Interpretation (test code = Abnormal 02699-5) [facility] [id number] 14:45:39 Test Item Value Reference Range Interpretation Comments LIPASE (test code = 7635167410) >6000 0-220 H Lab Interpretation (test code = Abnormal 28079-0) [facility], [id number] 14:45:39 Test Item Value Reference Range Interpretation Comments LIPASE (test code = 3488832311) >6000 0-220 H Lab Interpretation (test code = Abnormal 58118-6) [facility]abolic [id number] 14:02:11 Test Item Value Reference Range Interpretation Comments NA (test code = 135 mmol/L 135-145 5804277765) K (test code = 3.6 mmol/L 3.5-5.0 6838055626) CL (test code = 100 mmol/L 98-108 9239909208) CO2 TOTAL (test code = 24 mmol/L 23-31 0097606882) AGAP (test code = 2-16 6423838832) BUN (test code = 13 mg/dL 7-23 5117738619) GLUCOSE (test code = 155 mg/dL 70-110 H 2903123426) CREATININE (test code = 0.96 mg/dL 0.60-1.25 5925769863) TOTAL BILI (test code = 7.6 mg/dL 0.1-1.1 H 0741100743) CALCIUM (test code = 9.3 mg/dL 8.6-10.6 8169537082) T PROTEIN (test code = 7.7 g/dL 6.3-8.2 7471180080) ALBUMIN (test code = 4.2 g/dL 3.5-5.0 4861334101) ALK PHOS (test code = 317 U/L 34-122 H 4373048171) ALTv (test code = 379 U/L 5-50 H 2-6) AST(SGOT) (test code = 173 U/L 13-40 H 4864039451) eGFR (test code = mL/min/1.73m2 8467421033) JOSIE (test code = JOSIE) Association of Glomerular Filtration Rate (GFR) and Staging of Kidney Disease* + --+ --+ ------+| GFR (mL/min/1.73 m2) ?| With Kidney Damage ?| ?Without Kidney Damage+ --------+ --------+ +| ?>90 ?| ?Stage one ?| ? Normal ?+ ---+ ---+ -------+| ?60-89 ?| ?Stage two ?| ? Decreased GFR ? + --+ --+ ------+| ?30-59 ?| ?Stage three ?| ? Stage three ? + --+ --+ ------+| ?15-29 ?| ?Stage four ? | ? Stage four ?+ ---+ ---+ -------+| ?<15 (or dialysis) ? ?| ?Stage five ? | ? Stage five ?+ ---+ ---+ -------+ *Each stage assumes the associated GFR level has been in effect for at least three months. ?Stages 1 to 5, with or without kidney disease, indicate chronic kidney disease. Notes: Determination of stages one and two (with eGFR >59mL/min/1.73 m2) requires estimation of kidney damage for at least three months as defined by structural or functional abnormalities of the kidney, manifested by either:Pathological abnormalities or Markers of kidney damage (including abnormalities in the composition of the blood or urine or abnormalities in imaging tests). Lab Interpretation Abnormal (test code = 28290-2) [facility] Metabolic [id number] 14:02:11 Test Item Value Reference Range Interpretation Comments NA (test code = 135 mmol/L 135-145 7233650208) K (test code = 3.6 mmol/L 3.5-5.0 2272755853) CL (test code = 100 mmol/L 98-108 9100944877) CO2 TOTAL (test code = 24 mmol/L 23-31 5275946332) AGAP (test code = 2-16 5698510315) BUN (test code = 13 mg/dL 7-23 4779493190) GLUCOSE (test code = 155 mg/dL 70-110 H 2306911983) CREATININE (test code = 0.96 mg/dL 0.60-1.25 5887194322) TOTAL BILI (test code = 7.6 mg/dL 0.1-1.1 H 3463519930) CALCIUM (test code = 9.3 mg/dL 8.6-10.6 6563070216) T PROTEIN (test code = 7.7 g/dL 6.3-8.2 2368428684) ALBUMIN (test code = 4.2 g/dL 3.5-5.0 8882413024) ALK PHOS (test code = 317 U/L 34-122 H 6616264624) ALTv (test code = 379 U/L 5-50 H 1742-6) AST(SGOT) (test code = 173 U/L 13-40 H 3903608041) eGFR (test code = mL/min/1.73m2 1800796059) JOSIE (test code = JOSIE) Association of Glomerular Filtration Rate (GFR) and Staging of Kidney Disease* + --+ --+ ------+| GFR (mL/min/1.73 m2) ?| With Kidney Damage ?| ?Without Kidney Damage+ --------+ --------+ +| ?>90 ?| ?Stage one ?| ? Normal ?+ ---+ ---+ -------+| ?60-89 ?| ?Stage two ?| ? Decreased GFR ? + --+ --+ ------+| ?30-59 ?| ?Stage three ?| ? Stage three ? + --+ --+ ------+| ?15-29 ?| ?Stage four ? | ? Stage four ?+ ---+ ---+ -------+| ?<15 (or dialysis) ? ?| ?Stage five ? | ? Stage five ?+ ---+ ---+ -------+ *Each stage assumes the associated GFR level has been in effect for at least three months. ?Stages 1 to 5, with or without kidney disease, indicate chronic kidney disease. Notes: Determination of stages one and two (with eGFR >59mL/min/1.73 m2) requires estimation of kidney damage for at least three months as defined by structural or functional abnormalities of the kidney, manifested by either:Pathological abnormalities or Markers of kidney damage (including abnormalities in the composition of the blood or urine or abnormalities in imaging tests). Lab Interpretation Abnormal (test code = 64100-7) [facility] with [id number] 13:32:30 Test Item Value Reference Range Interpretation Comments WBC (test code = See_Comment H [Automated 3681-2) message] The system which generated this result transmit abel reference range : 4.20 - 10.70 10*3/?L. The reference range was not used to interpret this result as normal/abnormal . RBC (test code = See_Comment [Automated 399-8) message] The system which generated this result transmit abel reference range : 4.26 - 5.52 10*6/?L. The reference range was not used to interpret this result as normal/abnormal . HGB (test code = 15.7 g/dL 12.2-16.4 718-7) HCT (test code = 46.6 % 38.4-49.3 4544-3) MCV (test code = 91.2 fL 81.7-95.6 787-2) MCH (test code = 30.7 pg 26.1-32.7 785-6) MCHC (test code = 33.7 g/dL 31.2-35.0 786-4) RDW-SD (test code = 46.6 fL 38.5-51.6 79725-6) RDW-CV (test code = 13.6 % 12.1-15.4 788-0) PLT (test code = See_Comment [Automated 777-3) message] The system which generated this result transmit abel reference range : 150 - 328 10*3/ ?L. The reference range was not u sed to interpret th is result as normal/abnormal . MPV (test code = 11.2 fL 9.8-13.0 93294-0) NRBC/100 WBC (test See_Comment [Automat ed code = 0109313244) message] The system which generated this result transmit abel reference range : 0.0 - 10.0 /100 WBCs. The reference range was not used to interpret this result as normal/abnormal . NRBC x10^3 (test code <0.01 See_Comment [Auto mated = 2957245786) message] The system which generated this result transmit abel reference range : 10*3/?L. The reference range was not used to interpret this result as normal/abnormal . GRAN MAT (NEUT) % 80.4 % (test code = 770-8) IMM GRAN % (test code 0.60 % = 9123376450) LYMPH % (test code = 9.8 % 736-9) MONO % (test code = 8.8 % 5905-5) EOS % (test code = 0.2 % 713-8) BASO % (test code = 0.2 % 706-2) GRAN MAT x10^3(ANC) 13.49 10*3/uL 1.99-6.95 H (test code = 6748198248) IMM GRAN x10^3 (test 0.10 10*3/uL 0.00-0.06 H code = 6249450192) LYMPH x10^3 (test code 1.64 10*3/uL 1.09-3.23 = 731-0) MONO x10^3 (test code 1.48 10*3/uL 0.36-1.02 H = 742-7) EOS x10^3 (test code = 0.03 10*3/uL 0.06-0.53 L 711-2) BASO x10^3 (test code 0.04 10*3/uL 0.01-0.09 = 704-7) Lab Interpretation Abnormal (test code = 89636-8) [facility] with [id number] 13:32:30 Test Item Value Reference Range Interpretation Comments WBC (test code = See_Comment H [Automated 6690-2) message] The system which generated this result transmit abel reference range : 4.20 - 10.70 10*3/?L. The reference range was not used to interpret this result as normal/abnormal . RBC (test code = See_Comment [Automated 789-8) message] The system which generated this result transmit abel reference range : 4.26 - 5.52 10*6/?L. The reference range was not used to interpret this result as normal/abnormal . HGB (test code = 15.7 g/dL 12.2-16.4 718-7) HCT (test code = 46.6 % 38.4-49.3 4544-3) MCV (test code = 91.2 fL 81.7-95.6 787-2) MCH (test code = 30.7 pg 26.1-32.7 785-6) MCHC (test code = 33.7 g/dL 31.2-35.0 786-4) RDW-SD (test code = 46.6 fL 38.5-51.6 82407-0) RDW-CV (test code = 13.6 % 12.1-15.4 788-0) PLT (test code = See_Comment [Automated 777-3) message] The system which generated this result transmit abel reference range : 150 - 328 10*3/ ?L. The reference range was not u sed to interpret th is result as normal/abnormal . MPV (test code = 11.2 fL 9.8-13.0 60546-0) NRBC/100 WBC (test See_Comment [Automat ed code = 9301467142) message] The system which generated this result transmit abel reference range : 0.0 - 10.0 /100 WBCs. The reference range was not used to interpret this result as normal/abnormal . NRBC x10^3 (test code <0.01 See_Comment [Auto mated = 4994048926) message] The system which generated this result transmit abel reference range : 10*3/?L. The reference range was not used to interpret this result as normal/abnormal . GRAN MAT (NEUT) % 80.4 % (test code = 770-8) IMM GRAN % (test code 0.60 % = 7310230346) LYMPH % (test code = 9.8 % 736-9) MONO % (test code = 8.8 % 5905-5) EOS % (test code = 0.2 % 713-8) BASO % (test code = 0.2 % 706-2) GRAN MAT x10^3(ANC) 13.49 10*3/uL 1.99-6.95 H (test code = 5170719503) IMM GRAN x10^3 (test 0.10 10*3/uL 0.00-0.06 H code = 2514150281) LYMPH x10^3 (test code 1.64 10*3/uL 1.09-3.23 = 731-0) MONO x10^3 (test code 1.48 10*3/uL 0.36-1.02 H = 742-7) EOS x10^3 (test code = 0.03 10*3/uL 0.06-0.53 L 711-2) BASO x10^3 (test code 0.04 10*3/uL 0.01-0.09 = 704-7) Lab Interpretation Abnormal (test code = 96679-8) [facility]"
[2022-12-09] MEDS ORDERED: NA CHLORIDE 0.9% 1,000 ML ONE ×2 (11:58→16:31)
[2022-12-09 12:02] LABS: Hematocrit 47.3 % (39.6-49.0); Lymphocytes % 16.3 % (15.3-44.8); MCV 88.8 fL (80-100); MPV 8.6 fL (7.6-11.3); RBC Red Blood Cell Count 5.33 M/uL (4.33-5.43)
[2022-12-09 12:19] LABS: Albumin 3.8 g/dL (3.4-5.0); Bilirubin Total 0.7 mg/dL (0.2-1.0); Potassium 3.3 mEq/L (3.5-5.1); Protein, Total 8.4 g/dL (6.4-8.2)
--- NOTE | 2022-12-09 12:26 | RAD REPORT ---
EXAM DESCRIPTION: CT - Abdomen Pelvis W Contrast - 12/09/2022 12:01 pm CLINICAL HISTORY: ABD PAIN COMPARISON: No comparisons TECHNIQUE: Thin cut axial CT imaging of the abdomen and pelvis was performed following intravenous a dministration of 100 mL Isovue 300. Multiplanar reformats were generated and reviewed. All CT scans are performed using dose optimization technique as appropriate and may include automated exposure control or mA/KV adjustment according to patient size. FINDINGS: No suspicious findings in the lung bases. The liver, spleen, and pancreas show no suspicious findings. Heterogeneously enhancing ovoid right adrenal 3.1 x 2.4 centimeter nodule, indeterminate. No left adr enal abnormality. Gallbladder was surgically removed. No evidence of intra or extrahepatic biliary du ctal dilation. Symmetric renal function is seen with no hydronephrosis or suspicious renal mass. Bilateral renal cor tical fluid density cysts. Dilated small bowel loops throughout the abdomen, with air-fluid levels. Gradual transition to nondis tended ileum. Fluid opacification of the proximal colon As well. Mild mucosal hyperenhancement along jejunal loops in the left upper quadrant. No free air, free fluid or inflammatory stranding. No herni a, mass or bulky lymphadenopathy. The urinary bladder is without significant finding. No suspicious bony findings. IMPRESSION: Findings suggestive of small bowel ileus with sequelae nonspecific infectious or inflamm atory enteritis. Incidentally noted right adrenal 3.1 centimeter heterogeneously enhancing nodule, indeterminate. This can be further characterized on adrenal mass protocol MRI on outpatient basis.
[2022-12-09 15:07] LABS: Urine Bacteria <20 /HPF (<20); Urine Bilirubin NEGATIVE (Negative); Urine Blood 3+ (Negative); Urine Clarity Clear (Clear); Urine Color Light-Yellow (Yellow); Urine Glucose NEGATIVE (Negative); Urine Mucus Slight /HPF (None Seen); Urine Protein TRACE (Negative); Urine Urobilinogen Normal (Normal)
[2022-12-09 15:10] LABS: Specific Gravity 1.025 (1.005-1.030)
--- NOTE | 2022-12-09 15:29 | ER ---
Nurse's Notes [facility] Name: Neo Correa Age: 47 yrs Sex: Male : 1975 Arrival Date: 12/09/2022 Time: 11:18 Bed 5 Private MD: Diagnosis: Ileus, unspecified;Abdominal pain, unspecified Presentation: 12/09 11:28 Chief complaint: Patient states: Abdominal pain with N/V/D since Tuesday. Saw Vinny on ll1 Tuesday, prescribed hycosamine. [place] better, until last night. Coronavirus screen: Vaccine status: Patient reports receiving the 2nd dose of the covid vaccine. Client denies travel out of the [place] in the last 14 days. At this time, the client does not indicate any symptoms associated with coronavirus-19. Ebola Screen: Patient denies travel to an Ebola-affected area in the 21 days before illness onset. Initial Sepsis Screen: Does the patient meet any 2 criteria? No. Patient's initial sepsis screen is negative. Does the patient have a suspected source of infection? Yes: Acute abdominal pain. Risk Assessment: Do you want to hurt yourself or someone else? Patient reports no desire to harm self or others. Onset of symptoms was December 06, 2022. 11:28 Method Of Arrival: Ambulatory ll1 11:28 Acuity: GONZALO 3 ll1 Triage Assessment: 11:31 General: Appears in no apparent distress. Behavior is calm, cooperative, appropriate ll1 for age. Pain: Complains of pain in abdomen Pain currently is 7 out of 10 on a pain scale. Quality of pain is described as aching, crampy. GI: Reports lower abdominal pain, upper abdominal pain, diarrhea, nausea, vomiting. Historical: - Allergies: 11:31 No Known Allergies; ll1 - PMHx: 11:31 Hypertensive disorder; in the past; Hypercholesterolemia; ll1 - PSHx: 11:31 Cholecystectomy; ll1 - Immunization history:: Adult Immunizations up to date, Client reports receiving the 2nd dose of the Covid vaccine. - Social history:: Smoking status: Patient denies any tobacco usage or history of. Screenin:14 [facility] ED Fall Risk Assessment (Adult) History of falling in the last 3 months, iw including since admission. Abuse screen: Denies threats or abuse. Denies injuries from another. Nutritional screening: No deficits noted. Tuberculosis screening: No symptoms or risk factors identified. Assessment: 14:14 Reassessment: Patient appears in no apparent distress at this time. Patient and/or iw family updated on plan of care and expected duration. Pain level reassessed. Patient is alert, oriented x 3, equal unlabored respirations, skin warm/dry/pink. 16:00 Reassessment: Patient appears in no apparent distress at this time. No changes from kc6 previously documented assessment. Patient and/or family updated on plan of care and expected duration. Pain level reassessed. Patient is alert, oriented x 3, equal unlabored respirations, skin warm/dry/pink. 16:29 Reassessment: please see [facility] for further charting. kc6 17:37 GI: Bowel sounds hypoactive in right upper quadrant, left upper quadrant, right lower ko1 quadrant and left lower quadrant Abd is soft X 4 quads. Vital Signs: 11:28 BP 158 / 118; Pulse 94; Resp 18; Temp 98.2; Pulse Ox 100% on R/A; Weight 117.93 kg; ll1 Height 6 ft. 0 in. ; Pain 7/10; 14:30 BP 143 / 98; Pulse 83; Resp 16; Temp 98.7; Pulse Ox 99% on R/A; iw 16:19 BP 141 / 99; Pulse 86; Resp 16 S; Pulse Ox 100% on R/A; kc6 17:35 BP 132 / 93; Pulse 84; Resp 18; Pulse Ox 98% ; ko1 11:28 Body Mass Index 35.26 (117.93 kg, 182.88 cm) ll1 11:28 Pain Scale: Adult ll1 ED Course: 11:20 Patient arrived in ED. mr 11:22 Dg Mckeon DO is Attending Physician. ms3 11:31 Triage completed. ll1 11:31 Arm band placed on. ll1 11:59 CBC with Diff Sent. zm 11:59 CMP Sent. zm 11:59 Lipase Sent. zm 11:59 Inserted saline lock: 20 gauge in left antecubital area, using aseptic technique. Blood zm collected. 12:03 CT Abd/Pelvis - IV Contrast Only In Process Unspecified. EDMS 12:03 Courtney Peters, ALEXANDRA is Primary Nurse. iw 15:28 Ernesto Crow MD is Hospitalizing Provider. ms3 16:09 Blood Culture Adult (2) Sent. ko1 16:09 Protime (+inr) Sent. ko1 16:09 Ptt, Activated Sent. ko1 17:35 Patient has correct armband on for positive identification. Placed in gown. Bed in low ko1 position. Call light in reach. Side rails up X 1. Pulse ox on. NIBP on. 17:35 No provider procedures requiring assistance completed. ko1 17:35 Patient admitted, IV remains in place. ko1 Administered Medications: 12:10 Drug: NS 0.9% IV 1000 ml Route: IV; Rate: 1 bolus; Site: right antecubital; 16:20 Follow up: Response: No adverse reaction; IV Status: Completed infusion; IV Intake: kc6 1000ml Medication: 17:35 VIS not applicable for this client. ko1 Intake: 16:20 IV: 1000ml; Total: 1000ml. kc6 Outcome: 15:28 Decision to Hospitalize by Provider. ms3 17:35 Admitted to Med/surg accompanied by tech, via wheelchair, room 427, with chart, Report ko1 called to ALEXANDRA Arellano 17:35 Condition: stable 17:35 Instructed on the need for admit. 17:59 Patient left the ED. ko1 Signatures: Dispatcher [employer] Delicia Anthony Irene, RN Eva Garnett RN RN ss Lewis, Lynsay, RN RN ll1 Dg Mckeon, DO ms3 Veronica Ash Kaitlyn, RN RN kc6 Chrissy Saucedo RN RN ko1
--- NOTE | 2022-12-09 15:29 | EDPHYS ---
Physician Documentation [facility] Name: Neo Correa Age: 47 yrs Sex: Male : 1975 Arrival Date: 12/09/2022 Time: 11:18 Bed 5 Private MD: ED Physician Dg Mckeon HPI: 12/09 11:45 This 47 yrs old Male presents to ER via Ambulatory with complaints of ms3 Abdominal Pain. 11:45 47-year-old male with past medical history of hypertension, hypercholesterolemia ms3 presents for periumbilical pain that began 3 days prior to arrival. Patient states he saw his primary care physician yesterday and was given high Cosamin. Patient states symptoms resolved and the pain returned at 3 AM this morning. Patient states he had vomiting for the first 2 days. Patient has not had vomiting today. Patient endorses soft stools. Patient states his pain is a 5/10 and sharp.. Historical: - Allergies: 11:31 No Known Allergies; ll1 - PMHx: 11:31 Hypertensive disorder; in the past; Hypercholesterolemia; ll1 - PSHx: 11:31 Cholecystectomy; ll1 - Immunization history:: Adult Immunizations up to date, Client reports receiving the 2nd dose of the Covid vaccine. - Social history:: Smoking status: Patient denies any tobacco usage or history of. ROS: 11:45 Constitutional: Negative for fever, and chills. Neck: Negative for injury, pain, and ms3 swelling, Cardiovascular: Negative for chest pain, and palpitations. Respiratory: Negative for shortness of breath, cough, wheezing, and pleuritic chest pain. 11:45 MS/Extremity: Negative for injury and deformity, Skin: Negative for injury, rash, and discoloration. 11:45 Abdomen/GI: Positive for abdominal pain, vomiting. 11:45 All other systems are negative. Exam: 11:45 Constitutional: This is a well developed, well nourished patient who is awake, alert, ms3 and in no acute distress. Head/Face: Normocephalic, atraumatic. Neck: Trachea midline, no cervical lymphadenopathy. Supple, full range of motion without nuchal rigidity, or vertebral point tenderness. No Meningismus. Chest/axilla: Normal chest wall appearance and motion. Nontender with no deformity. Cardiovascular: Regular rate and rhythm with a normal S1 and S2. No gallops, murmurs, or rubs. Normal PMI, no JVD. No pulse deficits. Respiratory: Lungs have equal breath sounds bilaterally, clear to auscultation and percussion. No rales, rhonchi or wheezes noted. No increased work of breathing, no retractions or nasal flaring. 11:45 Abdomen/GI: Inspection: abdomen appears normal, Bowel sounds: normal, Palpation: mild abdominal tenderness, in all quadrants. 15:37 ECG was reviewed by the Attending Physician. ms3 Vital Signs: 11:28 BP 158 / 118; Pulse 94; Resp 18; Temp 98.2; Pulse Ox 100% on R/A; Weight 117.93 kg; ll1 Height 6 ft. 0 in. ; Pain 7/10; 14:30 BP 143 / 98; Pulse 83; Resp 16; Temp 98.7; Pulse Ox 99% on R/A; iw 16:19 BP 141 / 99; Pulse 86; Resp 16 S; Pulse Ox 100% on R/A; kc6 17:35 BP 132 / 93; Pulse 84; Resp 18; Pulse Ox 98% ; ko1 11:28 Body Mass Index 35.26 (117.93 kg, 182.88 cm) ll1 11:28 Pain Scale: Adult ll1 MDM: 11:45 Patient medically screened. ms3 11:45 Differential diagnosis: diverticulitis, gastritis, non-specific abd pain, pancreatitis. ms3 16:19 Data reviewed: vital signs, nurses notes, and as a result, I will admit patient. ms3 Consideration of Admission/Observation Patient was admitted/placed on observation. Management of patient was discussed with the following: Hospitalist: Dr Crow. Care significantly affected by the following chronic conditions: Hypertension, HLD. Counseling: I had a detailed discussion with the patient and/or guardian regarding: the historical points, exam findings, and any diagnostic results supporting the discharge/admit diagnosis, lab results, radiology results, the need for further work-up and treatment in the hospital. ED course: Discussed case with Dr. Crow he accepts patient for observation. All questions were answered. Discussed plan for observation with patient and he and his understand and agree with plan. 12/09 11:45 Order name: CBC with Diff; Complete Time: 12:41 ms3 06/08 11:45 Order name: CMP; Complete Time: 12:41 ms3 08 11:45 Order name: Lipase; Complete Time: 12:41 ms3 08 11:45 Order name: Urinalysis w/ reflexes; Complete Time: 15:14 ms3 08 12:42 Order name: Blood Culture Adult (2) ms3 /08 12:42 Order name: Lactate w/ 2H reflex if indic.; Complete Time: 15:17 ms3 12/09 12:42 Order name: Protime (+inr) ms3 08 12:42 Order name: Ptt, Activated ms3 /08 15:39 Order name: Basic Metabolic Panel EDMS 12/09 15:39 Order name: Basic Metabolic Panel EDMS 12/09 15:39 Order name: CBC with Automated Diff EDMS 12/09 15:39 Order name: CBC with Automated Diff EDMS 12/09 16:17 Order name: CREATININE WHOLE BLOOD EDMS 08 11:45 Order name: CT Abd/Pelvis - IV Contrast Only; Complete Time: 12:41 ms3 12/09 12:42 Order name: EKG; Complete Time: 12:43 ms3 08 15:39 Order name: NPO; Complete Time: 16:20 EDMS 08 11:45 Order name: IV Saline Lock; Complete Time: 11:59 ms3 12/09 11:45 Order name: Labs collected and sent; Complete Time: 11:59 ms3 08 12:42 Order name: Accucheck; Complete Time: 14:13 ms3 08 12:42 Order name: Cardiac monitoring; Complete Time: 15:58 ms3 12/09 12:42 Order name: EKG - Nurse/Tech; Complete Time: 15:58 ms3 12/09 12:42 Order name: IV Saline Lock - Large Bore; Complete Time: 14:13 ms3 12/09 12:42 Order name: O2 Per Protocol; Complete Time: 14:13 ms3 12/09 12:42 Order name: O2 Sat Monitoring; Complete Time: 14:13 ms3 12/09 12:42 Order name: Vital Signs; Complete Time: 14:17 ms3 EC:37 Rate is 89 beats/min. Rhythm is regular. QRS [place] is Normal. NE interval is normal. QRS ms3 interval is normal. Clinical impression: Normal ECG. Interpreted by me. Reviewed by me. Administered Medications: 12:10 Drug: NS 0.9% IV 1000 ml Route: IV; Rate: 1 bolus; Site: right antecubital; 16:20 Follow up: Response: No adverse reaction; IV Status: Completed infusion; IV Intake: kc6 1000ml Disposition Summary: 12/09/22 15:28 Hospitalization Ordered Hospitalization Status: Observation ms3 Provider: Ernesto Crow ms3 Location: Telemetry/MedSurg (observation) ms3 Condition: Stable ms3 Problem: new ms3 Symptoms: are unchanged ms3 Bed/Room Type: Standard ms3 Room Assignment: 427(12/09/22 17:16) Diagnosis - Ileus, unspecified ms3 - Abdominal pain, unspecified ms3 Forms: - Medication Reconciliation Form ms3 - SBAR form ms3 Signatures: Dispatcher [employer] EDRc Lazcano PA PA jmm Smirch, Shelby, RN RN Eze Ruelas RN RN 1 Dg Mckeon DO DO ms3 Veronica Ash Kaitlyn RN kc6 Corrections: (The following items were deleted from the chart) 17:16 15:28 ms3
[2022-12-09] MEDS ORDERED: ONDANSETRON 4 MG/2 ML VIAL IV PRN (15:36)
[2022-12-09] MEDS: NA CHLORIDE 0.9% 1,000 ML IV SCH ×2 (16:00→23:37)
[2022-12-09 16:29] VITALS: BMI 34.8
[2022-12-09 16:32] LABS: Protime INR 1.18
--- NOTE | 2022-12-09 17:57 | P.HP ---
Certification for Inpatient Patient admitted to: Observation With expected LOS: <2 Midnights Patient will require the following post-hospital care: None Practitioner: I am a practitioner with admitting privileges, knowledge of patient current condition, hospital course, and medical plan of care. Services: Services provided to patient in accordance with Admission requirements found in Title 42 Section 412.3 of the Code of Federal Regulations Patient History Date of Service: 12/09/22 Primary Care Provider: unknown Reason for admission: Gastroenteritis. History of Present Illness: Patient is a pleasant 47 year old gentleman with no prior history. He started having abdominal pain Tuesday. Started having nausea and vomiting Tuesday. Went to his pcp. Had a mild examination findings. However his symptoms worsened. The patient denies any sick contacts, recent antibiotics, visits to health care facilities. Some exposure to salt water. However he does not recall any ingestion. In the ER he was found to have a small bowel illeus. The patient appears well and is currently not complainting about any abdominal pain Review of Systems 10-point ROS is otherwise unremarkable Gastrointestinal: Abdominal Pain Physical Examination - Physical Exam General: Alert, In no apparent distress HEENT: Atraumatic, PERRLA, Mucous membr. moist/pink, EOMI, Sclerae nonicteric Neck: Supple, 2+ carotid pulse no bruit, No LAD, Without JVD or thyroid abnormality Respiratory: Clear to auscultation bilaterally, Normal air movement Cardiovascular: Regular rate/rhythm, Normal S1 S2 Gastrointestinal: Normal bowel sounds, No tenderness Musculoskeletal: No tenderness Integumentary: No rashes Neurological: Normal gait, Normal speech, Normal strength at 5/5 x4 extr, Normal tone, Normal affect Lymphatics: No axilla or inguinal lymphadenopathy - Studies Laboratory Data (last 24 hrs) 12/09/22 11:55: Sodium 136, Potassium 3.3 L, BUN 17, Creatinine 1.21, Glucose 125 H, Total Bilirubin 0.7, AST 17, ALT 35, Alkaline Phosphatase 114, Lipase 22 12/09/22 11:55: WBC 12.20 H, Hgb 16.2, Hct 47.3, Plt Count 271 Assessment and Plan - Problems (Diagnosis) (1) Gastroenteritis Current Visit: Yes Status: Acute Plan: possible viral. will keep him on fluids. Keep him NPO. Have the patient start clear liquids in the am. If he tolerates we can send him home with phenergan Discharge Plan: Home Plan to discharge in: 24 Hours - Advance Directives Does patient have a Living Will: No Does patient have a Durable POA for Healthcare: No - Code Status/Comfort Care Code Status Assessed: Yes Code Status: Full Code Physician Review: Patient Assessed, Agree with Above Assessment and Plan Critical Care: No Time Spent Managing Pts Care (In Minutes): 45
[2022-12-09] MEDS ORDERED: HYDROMORPHONE HCL 0.5 MG/0.5 ML INJ IV PRN (17:58)
[2022-12-09 22:23] LABS: C.diff Antigen/Toxin Ag neg : Tox neg (NEG : NEG)
[2022-12-09 23:00] VITALS: O2SAT 100
[2022-12-10 04:56] LABS: Absolute Lymphocytes (CBC) 3.4 K/uL (0.7-4.9); Hematocrit 40.6 % (39.6-49.0); Lymphocytes % 26.8 % (15.3-44.8); MCV 90.1 fL (80-100); MPV 9.3 fL (7.6-11.3)
[2022-12-10] MEDS: NA CHLORIDE 0.9% 1,000 ML IV SCH (07:19)
--- NOTE | 2022-12-10 08:23 | P.DS ---
Admission Date: 12/09/22 Discharge Date: 12/10/22 Primary Care Provider: unknown Disposition: ROUTINE DISCHARGE Discharge Condition: GOOD Reason for Admission: Gastroenteritis. - Problems (1) Gastroenteritis Current Visit: Yes Status: Acute Brief History of Present Illness: Patient is a pleasant 47 year old gentleman with no prior history. He started having abdominal pain Tuesday. Started having nausea and vomiting Tuesday. Went to his pcp. Had a mild examination findings. However his symptoms worsened. The patient denies any sick contacts, recent antibiotics, visits to health care facilities. Some exposure to salt water. However he does not recall any ingestion. In the ER he was found to have a small bowel illeus. The patient appears well and is currently not complainting about any abdominal pain Hospital Course: Patient was admited for an illeus. This morning he seems much better. The patient has some soft stools. Will start him on a full liquid diet and advance as tolerated. If he improves to a soft diet we can safely discharge him home. He is negative for C.diff. ova and paracytes are pending. [facility] [place]. Vital Signs/Physical Exam: Temp Pulse Resp BP Pulse Ox 98.1 F 77 18 122/73 97 12/10/22 04:00 12/10/22 04:00 12/10/22 04:00 12/10/22 04:00 12/10/22 04:00 General: Alert, In no apparent distress HEENT: Atraumatic, PERRLA, EOMI Neck: Supple, JVD not distended Respiratory: Clear to auscultation bilaterally, Normal air movement Cardiovascular: Regular rate/rhythm, Normal S1 S2 Gastrointestinal: Normal bowel sounds, No tenderness Musculoskeletal: No tenderness Integumentary: No rashes Neurological: Normal speech, Normal tone, Normal affect Lymphatics: No axilla or inguinal lymphadenopathy Laboratory Data at Discharge: WBC 12.50 thou/uL (4.3-10.9) H 12/10/22 03:48 Hgb 13.6 g/dL (13.6-17.9) D 12/10/22 03:48 Hct 40.6 % (39.6-49.0) 12/10/22 03:48 Plt Count 221 thou/uL (152-406) 12/10/22 03:48 PT 13.0 SECONDS (9.5-12.5) H 12/09/22 16:15 INR 1.18 12/09/22 16:15 APTT 26.5 SECONDS (24.3-36.9) 12/09/22 16:15 Sodium 138 mEq/L (136-145) 12/10/22 03:48 Potassium 3.0 mEq/L (3.5-5.1) L 12/10/22 03:48 BUN 18 mg/dL (7-18) 12/10/22 03:48 Creatinine 1.02 mg/dL (0.70-1.30) 12/10/22 03:48 Glucose 93 mg/dL (74-106) 12/10/22 03:48 Total Bilirubin 0.7 mg/dL (0.2-1.0) 12/09/22 11:55 AST 17 U/L (15-37) 12/09/22 11:55 ALT 35 U/L (16-61) 12/09/22 11:55 Alkaline Phosphatase 114 U/L (45-117) 12/09/22 11:55 Lipase 22 U/L (13-75) 12/09/22 11:55 Home Medications: Bismuth Subsalicylate 262 mg PO QID PRN 5 Days #60 tab.chew 12/10/22 Diphenox/Atropine [Lomotil] 1 tab PO TIDP PRN 5 Days #20 tab 12/10/22 New Medications: Bismuth Subsalicylate 262 mg PO QID PRN 5 Days #60 tab.chew PRN Reason: Abdominal Pain Diphenox/Atropine [Lomotil] 1 tab PO TIDP PRN 5 Days #20 tab PRN Reason: Diarrhea Diet: [place] Followup: NONE,NONE [Primary Care Provider] - Physician Review: Patient Assessed, Agree with Above Assessment and Plan Time spent managing pt's care (in minutes): 30
[2022-12-10 12:11] VITALS: BP 127/78; TEMP 97.6
--- NOTE | 2022-12-10 14:48 | EKG ---
Test Date: 2022-12-09 Test Time: 15:16:59 [employer] Operator: JUSTEN MEASUREMENT RESULTS: Intervals: Rate: 89 MA: 154 QRSD: 100 QT: 358 QTc: 435 [place]: P: 47 MA: 154 QRS: 65 T: 17 INTERPRETIVE STATEMENTS: Normal sinus rhythm Normal ECG No previous ECG available for comparison Electronically Signed On 12-10-22 14:44:41 CDT by Saud Palencia
== END 2022-12-10 14:06 | disposition home or self-care (01) ==
LOC: ER 11:18 → ERHOLD 15:35 → 4TH 17:38
PROVIDERS: ADMIT Internal Medicine; ATTEND Internal Medicine
DX: K52.9 Noninfective gastroenteritis and colitis, unspecified (principal); I10 Essential (primary) hypertension; E78.00 Pure hypercholesterolemia, unspecified
CPT/HCPCS: 96361; 93005; 87040 ×2; 85025 ×2; 81001; 80048; 36415; 89055; 87177; 85610; 82565; 83605; 85730; 87209; 87324; 83690; 80053; 74177; 96360; 99285; Q9967; J7030 ×4; G0378